=== PATIENT | female | born 1965 | race Caucasian/White ===

== ENCOUNTER 2020-11-14 18:18 | Emergency (ER) | payer MEDICAID, SELFPAY ==
[2020-11-14 22:50] VITALS: BP 134/79; PULSE 99; RESP 22; TEMP 36.1; O2SAT 98
[2020-11-14 23:22] VITALS: BP 111/71; PULSE 90; RESP 18; TEMP 36.6; O2SAT 97; BMI 40.0
[2020-11-14 23:28] VITALS: BP 111/71; RESP 18; TEMP 36.6; O2SAT 97
[2020-11-15 01:55] VITALS: BP 126/69; PULSE 93; RESP 18; TEMP 36.6; O2SAT 96
[2020-11-15 02:00] VITALS: BP 126/69; PULSE 89; RESP 20; O2SAT 96
[2020-11-15 03:37] VITALS: BP 134/66; PULSE 93; RESP 20; O2SAT 96
--- NOTE | 2020-11-15 03:51 | ED_ITS ---
HPI - Skin/Abscess/Foreign Bdy General Chief complaint: Skin/Abscess/Foreign Body Stated complaint: Abscess/Hyperglycemia Time Seen by Provider: 11/15/20 03:51 Source: patient Mode of arrival: ambulatory Limitations: no limitations History of Present Illness MD complaint: rash and lesion Onset (ago): day(s) (5) Tetanus up to date: yes Location: generalized (right lower abdomen) Severity: moderate Quality: aching Pain Consistency: constant Relieving factors: none Exacerbating factors: none Context: none Associated symptoms: denies other symptoms Treatments prior to arrival: other (area drained at home) Related Data Previous Rx's Medication Instructions Recorded cephalexin 500 mg PO BID 7 Days #14 cap 11/15/20 doxycycline hyclate 100 mg PO BID 7 Days #14 cap 11/15/20 mupirocin 1 appl TOPICAL BID 7 Days #15 g 11/15/20 Allergies Allergy/AdvReac Type Severity Reaction Status Date / Time No Known Allergies Allergy Unverified 07/10/20 18:55 [No Known Allergies*] Review of Systems Review of Systems: Constitutional : No Fever, No Chills ENT/Mouth : No sore throat, No Rhinorrhea Eyes: No Eye Pain, No Swelling, No Redness Cardiovascular : No Chest Pain, No SOB Respiratory : No Cough, No Sputum Gastrointestinal : No Nausea, No Vomiting, No Diarrhea, No abdominal Pain Genitourinary : No Dysuria, No Hematuria Musculoskeletal : No joint pain, No Myalgias, No Joint Swelling Skin : No Skin Lesions, positive skin rash Neuro : No Weakness, No Numbness, No Headache Psych : No Anxiety, No Depression All other systems reviewed and are negative [facility] Past Medical History Attestation statement: The following information was validated with the patient. Medical History (Updated 11/15/20 @ 03:54 by Chacha Houston DO) Anxiety Diabetes Social History Social History (Updated 11/15/20 @ 03:54 by Chacha Houston DO) Smoking Status: Never smoker Advance Directives: No Advance Directives Information Provided: No Physical Exam Vital Signs: Vital Signs: Last Vital Signs Temp 97.8 F 11/15/20 01:55 Pulse 93 11/15/20 03:37 Resp 20 11/15/20 03:37 BP 134/66 11/15/20 03:37 Pulse Ox 96 01/23/21 03:37 Body Mass Index 40.0 Appearance: Alert. Oriented X3. No acute distress. Eyes: Pupils equal, round and reactive to light. ENT: Pharynx normal. Neck: Normal inspection. Neck supple. CVS: Normal heart rate and rhythm. Pulses normal. Respiratory: No respiratory distress. Breath sounds normal. Abdomen: Soft and nontender. patch of erythema and mild swelling right lower abdomen scabbed over lesion, no fluctuance area is 4x5cm, very mild ttp Skin: Skin warm and dry. Normal skin color. Normal skin turgor. Extremities: No lower extremity edema. No calf ttp Neuro: Oriented X 3. No motor deficit. No sensory deficit. MDM - Skin/Abscess/Foreign Bdy MDM Narrative Medical decision making narrative: 55 yo female with 5 days of redness and drained lesion R lower abdominal wall, no fevers, no systemic symptoms, area is already drained, mild cellulitis start on antibiotics and ointment refer to PCP Discharge Plan Discharge Clinical Impression: Cellulitis Qualifiers: Site of cellulitis: trunk Site of cellulitis of trunk: abdominal wall Qualified Code(s): L03.311 - Cellulitis of abdominal wall Patient Disposition: Home, Self-Care Instructions: Cellulitis (ED) Additional Instructions: return to ED for any worsening symptoms or concerns Prescriptions: New doxycycline hyclate 100 mg capsule 100 mg PO BID 7 Days Qty: 14 RF: 0 cephalexin 500 mg capsule 500 mg PO BID 7 Days Qty: 14 RF: 0 mupirocin 2 % ointment 1 appl topical BID 7 Days Qty: 15 RF: 0 Referrals: Name,MD Chu [Primary Care Provider] - 3 days (wound check) Print Language: Kiswahili
[2020-11-15] MEDS: cephALEXin 500 MG CAPSULE PO (03:58)
== END 2020-11-15 04:05 | disposition home or self-care (01) ==
PROVIDERS: Emergency Provider Emergency Medicine; PCP Internal Medicine Geriatric Medicine
DX: L03.311 Cellulitis of abdominal wall (principal); E11.9 Type 2 diabetes mellitus without complications
CPT/HCPCS: 99283; 99284

== ENCOUNTER 2021-12-01 09:09 | Outpatient (REF) | payer MEDICAID, SELFPAY ==
--- NOTE | ~2021-12-01 | XR_ITS ---
EXAMINATION: XR LUMBAR SPINE, BILATERAL SHOULDERS CLINICAL INFORMATION: Pain. COMPARISON: None. TECHNIQUE: 4 views each shoulder. Lumbar spine 6 views. FINDINGS: Lumbar Spine: There is normal lumbar lordosis. The vertebral heights, alignment and disc heights are normal. On oblique view, there is no pars defect or listhesis. There is mild anterior superior endplates spondylosis at L3 and L4 vertebrae. The paravertebral soft tissues are normal. Left Shoulder: There is no visible acute fracture, dislocation or subluxation. There is mild loss of AC joint space with inferior spurring. No fracture or loose body seen. The soft tissues are normal. Right Ac Joint: There is mild loss of right AC joint space with inferior periarticular spurring. The glenohumeral joint space is normal. No visible acute fracture, dislocation or subluxation seen. The soft tissues are normal. XR/XR shoulder LT min 2V IMPRESSION: Unremarkable lumbar spine exam except for mild anterior superior endplate spurring at L3 and L4 vertebrae. Mild degenerative changes bilateral AC joints. The glenohumeral joint space is normal. No acute fracture or dislocation seen.
--- NOTE | ~2021-12-01 | XR_ITS ---
EXAMINATION: XR LUMBAR SPINE, BILATERAL SHOULDERS CLINICAL INFORMATION: Pain. COMPARISON: None. TECHNIQUE: 4 views each shoulder. Lumbar spine 6 views. FINDINGS: Lumbar Spine: There is normal lumbar lordosis. The vertebral heights, alignment and disc heights are normal. On oblique view, there is no pars defect or listhesis. There is mild anterior superior endplates spondylosis at L3 and L4 vertebrae. The paravertebral soft tissues are normal. Left Shoulder: There is no visible acute fracture, dislocation or subluxation. There is mild loss of AC joint space with inferior spurring. No fracture or loose body seen. The soft tissues are normal. Right Ac Joint: There is mild loss of right AC joint space with inferior periarticular spurring. The glenohumeral joint space is normal. No visible acute fracture, dislocation or subluxation seen. The soft tissues are normal. XR/XR shoulder RT min 2V IMPRESSION: Unremarkable lumbar spine exam except for mild anterior superior endplate spurring at L3 and L4 vertebrae. Mild degenerative changes bilateral AC joints. The glenohumeral joint space is normal. No acute fracture or dislocation seen.
--- NOTE | ~2021-12-01 | XR_ITS ---
EXAMINATION: XR LUMBAR SPINE, BILATERAL SHOULDERS CLINICAL INFORMATION: Pain. COMPARISON: None. TECHNIQUE: 4 views each shoulder. Lumbar spine 6 views. FINDINGS: Lumbar Spine: There is normal lumbar lordosis. The vertebral heights, alignment and disc heights are normal. On oblique view, there is no pars defect or listhesis. There is mild anterior superior endplates spondylosis at L3 and L4 vertebrae. The paravertebral soft tissues are normal. Left Shoulder: There is no visible acute fracture, dislocation or subluxation. There is mild loss of AC joint space with inferior spurring. No fracture or loose body seen. The soft tissues are normal. Right Ac Joint: There is mild loss of right AC joint space with inferior periarticular spurring. The glenohumeral joint space is normal. No visible acute fracture, dislocation or subluxation seen. The soft tissues are normal. XR/XR lumbar spine 4V min IMPRESSION: Unremarkable lumbar spine exam except for mild anterior superior endplate spurring at L3 and L4 vertebrae. Mild degenerative changes bilateral AC joints. The glenohumeral joint space is normal. No acute fracture or dislocation seen.
== END 2021-12-01 09:10 | disposition home or self-care (01) ==
LOC: HO.XRAY 09:09
PROVIDERS: PCP Internal Medicine Geriatric Medicine; Visit Provider Internal Medicine Geriatric Medicine
DX: M25.511 Pain in right shoulder (principal); M25.512 Pain in left shoulder; M54.50 Low back pain, unspecified
CPT/HCPCS: 72110; 73030

== ENCOUNTER 2022-09-22 07:22 | Outpatient (REF) | payer MEDICAID, SELFPAY ==
--- NOTE | ~2022-09-22 | MR_ITS ---
EXAMINATION: MR LUMBAR SPINE WITHOUT CONTRAST CLINICAL INFORMATION: Radiculopathy COMPARISON: None TECHNIQUE: MRI of the lumbar spine was obtained using routine sequences without contrast. FINDINGS: Motion degraded examination with nondiagnostic axial images. Normal anatomic alignment. No suspicious marrow signal or focal osseous lesion. Fatty endplate marrow signal changes on the right at L5-S1. No significant marrow edema. The vertebral body heights are maintained. Mild disc desiccation at L3-L4 and L5-S1 with preservation of disc space height.. The conus medullaris terminates at the level of L1. The distal spinal cord is normal in appearance. The cauda equina nerve roots appear grossly normal. No significant abnormalities of the paraspinal musculature.. Subcutaneous lesion in the soft tissues of the midline lower back the level of L5-S1 measuring up to 1.9 cm is nonspecific but most likely represents a sebaceous cyst. There is mild edema of the midline deep subcutaneous soft tissues. Limited evaluation of the intra-abdominal structures without significant abnormalities. Right renal cyst. The abdominal aorta is of normal contour and caliber. SPINAL LEVELS: Spinal levels are interpreted on primarily on sagittal imaging T12-L1: No evidence of spinal canal or neural foraminal narrowing. There is a 7 mm cyst posterior to the right facet joints, likely synovial cyst. L1-L2: No evidence of spinal canal or neural foraminal narrowing. L2-L3: No evidence of spinal canal or neural foraminal narrowing L3-L4: No evidence of spinal canal or neural foraminal narrowing. L4-L5: No significant spinal canal or neuroforaminal narrowing. Suggestion of mild facet arthropathy. L5-S1: Suggestion of mild facet arthropathy. Broad-based disc bulge with mild to moderate bilateral neural foraminal narrowing. MR/MR lumbar spine wo con IMPRESSION: Motion degraded examination with nondiagnostic axial imaging of the lumbar spine. Evaluation of the spinal levels is made on sagittal images which limits sensitivity for subtle disc herniations or nerve impingement. Overall mild degenerative changes of the lumbar spine with widely patent lumbar spinal canal. There is suggestion of mild to moderate bilateral neural foraminal narrowing at L5-S1.
== END 2022-09-22 07:23 | disposition home or self-care (01) ==
LOC: HO.MRI 07:22
PROVIDERS: Visit Provider Internal Medicine Geriatric Medicine
DX: M25.811 Other specified joint disorders, right shoulder (principal); M54.16 Radiculopathy, lumbar region
CPT/HCPCS: 72148

== ENCOUNTER 2023-03-22 10:53 | Outpatient (REF) | payer MEDICAID, SELFPAY ==
--- NOTE | ~2023-03-22 | XR_ITS ---
EXAMINATION: XR SHOULDER, RIGHT CLINICAL INFORMATION: Chronic right shoulder pain COMPARISON: 12/01/2021 TECHNIQUE: AP external rotation, Grashey, scapular Y, and axillary views of the right shoulder. FINDINGS: There is no evidence of fracture or dislocation. Glenohumeral joint is preserved. There are mild degenerative changes of right acromioclavicular joint. Soft tissues unremarkable. XR/XR shoulder RT min 2V IMPRESSION: Mild degenerative changes in the right acromioclavicular joint
== END 2023-03-22 10:54 | disposition home or self-care (01) ==
LOC: HO.XRAY 10:53
PROVIDERS: PCP Internal Medicine Geriatric Medicine; Visit Provider Internal Medicine Geriatric Medicine
DX: M25.511 Pain in right shoulder (principal)
CPT/HCPCS: 73030

== ENCOUNTER 2023-06-13 13:53 | Outpatient (REF) | payer MEDICAID, SELFPAY ==
[2023-06-13 17:24] LABS: Anion Gap 10 (12-20); Blood Urea Nitrogen 11 mg/dL (9-16); Calcium 9.9 mg/dL (8.4-10.2); Carbon Dioxide 27 mmol/L (22-29); Chloride 109 mmol/L (96-108); Estimated Glomerular Filt Rate > 60; Glucose Random 98 mg/dL (60-115); Potassium 3.7 mmol/L (3.3-5.1); Sodium 142 mmol/L (135-145)
== END 2023-06-13 13:54 | disposition home or self-care (01) ==
LOC: HO.HHCL 13:53
PROVIDERS: Visit Provider Internal Medicine Geriatric Medicine
DX: E11.69 Type 2 diabetes mellitus with other specified complication (principal); Z79.4 Long term (current) use of insulin
CPT/HCPCS: 36415; 80048

== ENCOUNTER 2023-10-05 09:42 | Outpatient (AMB) | payer MEDICAID, SELFPAY ==
--- NOTE | 2023-10-05 09:43 | MHC.OFFVIS ---
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 The patient states that she injured her right shoulder approximately 18 months ago while lifting a heavy object. Since that time her symptoms have gotten worse in spite of continued non operative treatments. She has done physical therapy which aggravated her pain. She has also tried Tylenol and anti-inflammatory medicines which gave her minimal relief. She has had injections in the past which gave her no relief. Patient states that she is not able to lift her right hand above shoulder height. Allergies No Known Allergies [No Known Allergies*] Allergy (Verified 10/05/23 09:50) Medication List - Last Reconciled 10/05/23 by Paul Gagnon MD cephalexin 500 mg PO BID 7 days doxycycline hyclate 100 mg PO BID 7 days mupirocin 2% 1 appl topical BID 7 days PFSH Medical History (Updated 10/05/23 @ 10:21 by Paul Gagnon MD) Anxiety Diabetes Social History Alcohol intake: never Substance Use Type: Marijuana Physical Exam Const Other: Well-nourished well-developed very friendly female awake alert and oriented x3 in no acute distress Extrem Other: Bilateral upper extremity examination shows good capillary refill, no skin lesions noted, normal sensation light touch Right shoulder examination shows decreased active and passive range of motion when compared to her left shoulder, 4+ out of 5 strength with supraspinatus testing, positive impingement signs, tenderness over her acromioclavicular joint, no instability Results Reviewed Results Reviewed: X-rays of the patient's right shoulder show severe acromioclavicular joint narrowing, a type 2 acromion, no acute bony abnormalities Assessment & Plan Assessment & Plan (1) Right shoulder pain: Code(s): M25.511 - Pain in right shoulder Plan: Ms. Story presents with progressively worsening right shoulder pain and weakness due to impingement syndrome, acromioclavicular joint arthritis and possible rotator cuff tearing. Thus, I will send the patient for an MRI of her right shoulder to further evaluate the status of her rotator cuff tendons. If she does have a full-thickness tear I will recommend surgical repair to optimize her future functional level. I will see her back once the MRI is completed to discuss the findings and treatment options. Feel free to call me at any time should questions regarding her orthopedic management arise. Thank you very much for asking me to see this very friendly patient. I spent 22 minutes in reviewing the patient's records and imaging studies, seeing the patient and documenting in the medical record. Orders: Orders MR shoulder RT wo con Today M25.511 - Pain in right shoulder Coding Level of Care Code New Pt Level 2 (73512) Diagnoses Right shoulder pain M25.511
== END 2023-10-05 10:14 | disposition home or self-care (01) ==
PROVIDERS: PCP Internal Medicine Geriatric Medicine; Visit Provider Orthopaedic Surgery
DX: M25.511 Pain in right shoulder (principal)
CPT/HCPCS: 99202

== ENCOUNTER → 2023-10-05 09:42 | Outpatient (BNVA) | payer MEDICAID, SELFPAY | PROVIDERS: PCP Internal Medicine Geriatric Medicine; Visit Provider Orthopaedic Surgery | DX: M25.511 Pain in right shoulder (principal) | CPT/HCPCS: 99202 ==

== ENCOUNTER 2023-12-16 08:44 | Outpatient (REF) | payer MEDICAID, SELFPAY ==
--- NOTE | ~2023-12-16 | MR_ITS ---
EXAMINATION: MR SHOULDER WITHOUT CONTRAST, RIGHT CLINICAL INFORMATION: Shoulder pain COMPARISON: None available. TECHNIQUE: MRI of the shoulder without contrast was performed on a high-field scanner. FINDINGS: ROTATOR CUFF: Mild-moderate supraspinatus tendinosis. Partial-thickness articular aspect tear in the distal anterior fibers measuring 1.2 cm cm AP, up to 1.7 cm medial-lateral. Infraspinatus, teres minor is intact. Moderate subscapularis tendinosis. No muscle atrophy or fatty infiltration. BICEPS: Intact CORACOACROMIAL ARCH: The undersurface of the acromion is flat with lateral subacromial spur. Moderate acromioclavicular arthritis. Mild subacromial subdeltoid bursitis. . LABRUM/CAPSULE: No labral tear is seen. No paralabral cyst. GLENOHUMERAL JOINT/MARROW: Greater tuberosity subcortical degenerative/reactive edema. No fracture. No aggressive marrow replacing lesion. No focal chondral loss.. Small joint fluid. MR/MR shoulder RT wo con IMPRESSION: 1. Mild-moderate supraspinatus tendinosis. Partial-thickness articular aspect tear anteriorly measuring 1.2 x 1.7 cm. 2. Moderate subscapularis tendinosis. 3. Moderate acromioclavicular arthritis. Mild subacromial subdeltoid bursitis.
== END 2023-12-16 08:45 | disposition home or self-care (01) ==
LOC: HO.MRI 08:44
PROVIDERS: PCP Internal Medicine Geriatric Medicine; Visit Provider Orthopaedic Surgery
DX: M25.511 Pain in right shoulder (principal)
CPT/HCPCS: 73221

== ENCOUNTER 2023-12-21 11:16 | Outpatient (REF) | payer MEDICAID, SELFPAY ==
[2023-12-21 13:59] LABS: Basophils Percent Auto 0.3 % (0-2); Eosinophils Absolute Auto 0.2 X10*3/uL (0.0-0.4); Eosinophils Percent Auto 1.7 % (0-4); Hematocrit 46.3 % (37.0-47.0); Hemoglobin 15.3 g/dl (12.0-16.0); Imm Gran Abs Auto 0.04 X10*3/uL (0.00-0.03); Imm Gran Pct Auto 0.3 % (0.0-0.4); Lymphocytes Percent Auto 53.2 % (20-40); MANUAL DIFF FLAG SCAN; Mean Corpuscular Hemoglobin 31.7 pg (27.0-33.0); Mean Corpuscular Volume 95.9 fL (80.0-98.0); Mean Platelet Volume 10.3 fL (9.4-12.3); Monocytes Absolute Auto 0.8 X10*3/uL (0.1-1.2); Monocytes Percent Auto 5.8 % (2-11); Neutrophils Absolute Auto 5.2 x10*3/uL (2.0-8.3); Neutrophils Percent Auto 38.7 % (45-73); Platelet Count 354 X10*3/uL (160-400); Red Blood Count 4.83 X10*6/uL (4.20-5.50); Red Cell Distribution Width 13.2 % (11.0-16.0); SCAN SMEAR FLAG 1; White Blood Count 13.3 X10*3/uL (4.8-10.8)
[2023-12-21 14:06] LABS: Lymphocytes Absolute Auto 7.1 X10*3/uL (1.2-4.9)
[2023-12-21 14:20] LABS: Anion Gap 12 (12-20); Blood Urea Nitrogen 13 mg/dL (9-16); Calcium 9.7 mg/dL (8.4-10.2); Carbon Dioxide 26 mmol/L (22-29); Chloride 106 mmol/L (96-108); Estimated Glomerular Filt Rate > 60; Glucose Random 80 mg/dL (60-115); Potassium 3.3 mmol/L (3.3-5.1); Sodium 141 mmol/L (135-145)
[2023-12-21 14:28] LABS: B Type Natriuretic Peptide < 10 pg/mL (<100)
[2023-12-21 15:19] LABS: SLIDE REVIEW VERIFIED
== END 2023-12-21 11:17 | disposition home or self-care (01) ==
LOC: HO.HHCL 11:16
PROVIDERS: Visit Provider Internal Medicine Geriatric Medicine
DX: E11.69 Type 2 diabetes mellitus with other specified complication (principal); R06.09 Other forms of dyspnea; R60.0 Localized edema; Z79.4 Long term (current) use of insulin
CPT/HCPCS: 36415; 80048; 83880; 85025

== ENCOUNTER 2023-12-23 10:00 | Outpatient (REF) | payer MEDICAID, SELFPAY ==
--- NOTE | ~2023-12-23 | XR_ITS ---
EXAMINATION: XR CHEST CLINICAL INFORMATION: Dyspnea on exertion COMPARISON: None available. TECHNIQUE: 2 views of the chest were obtained. FINDINGS: Bronchial thickening which can be seen in setting of infectious/plantar etiology. No pneumothorax. Trachea is midline. Cardiomediastinal silhouette is not enlarged. No large pleural effusion. Osseous structures are intact. Soft tissues are unremarkable. XR/XR chest 2V IMPRESSION: Bronchial thickening which can be seen in setting of infectious/plantar etiology.
== END 2023-12-23 10:01 | disposition home or self-care (01) ==
LOC: HO.HHCX 10:00
PROVIDERS: Visit Provider Internal Medicine Geriatric Medicine
DX: R06.09 Other forms of dyspnea (principal)
CPT/HCPCS: 71046

== ENCOUNTER 2023-12-28 17:13 | Emergency (ER) | payer MEDICAID, SELFPAY ==
--- NOTE | ~2023-12-28 | XR_ITS ---
EXAMINATION: XR CHEST CLINICAL INFORMATION: Pain COMPARISON: Chest radiograph from 12/23/2023 TECHNIQUE: 2 views of the chest were obtained. FINDINGS: Bronchial thickening which can be seen in setting of infectious/inflammatory etiology. Slight bibasilar atelectasis. No pneumothorax. Trachea is midline. Cardiac mediastinal silhouette is not enlarged. No large pleural effusion. Degenerative changes of the thoracolumbar spine. Soft tissues are unremarkable. XR/XR chest 2V IMPRESSION: 1. Bronchial thickening which can be seen in setting of infectious/inflammatory etiology. 2. Slight bibasilar atelectasis.
--- NOTE | ~2023-12-28 | CT_ITS ---
EXAMINATION: CT HEAD WITHOUT CONTRAST CLINICAL INFORMATION: Headache. Vision changes. COMPARISON: CT scan of the head 04/14/2016. TECHNIQUE: Contiguous axial imaging was performed from the skull base to vertex without intravenous administration of contrast. This CT examination was performed using dose optimization techniques as appropriate, variously including the following: *Automated exposure control *Adjustment of mA and/or kV according to patient size (this includes techniques or standardized protocols for targeted exams where dose is matched to indication/reason for exam; i.e. extremities or head) *Use of iterative reconstruction technique DLP: 713 mGy-cm FINDINGS: There is a Chiari type I malformation with the caudal tips of the cerebellar tonsils extending as far as 1.3 cm below the foramen magnum. The craniocervical junction is otherwise unremarkable. There is no acute intracranial hemorrhage or abnormal extra-axial collection. No intracranial mass effect or hydrocephalus. Perez-white matter differentiation is preserved and there is no evidence of acute territorial infarct. There is no mastoid or middle ear effusion. No active paranasal sinus disease. CT/CT head/brain wo IV con IMPRESSION: There is a Chiari type I malformation with the caudal tips of the cerebellar tonsils extending as far as 1.3 cm below the foramen magnum. A brain MRI without and with contrast is recommended for better anatomic characterization of this finding. Otherwise unremarkable examination in that there is no evidence of acute territorial infarct or hemorrhage.
[2023-12-28 17:42] VITALS: BP 118/68; PULSE 116; RESP 18; TEMP 37.1; O2SAT 90; BMI 56.0
--- NOTE | 2023-12-28 18:27 | ED.HA ---
HPI - Headache General Chief Complaint: Headache Stated Complaint: bad headache x4 days Time Seen by Provider: 12/28/23 19:14 Source: patient, RN notes reviewed, old records reviewed and seismic interpreter Mode of arrival: ambulatory Limitations: language barrier History of Present Illness HPI Narrative: 58-year-old female with past medical history significant for diabetes, asthma presents for evaluation of a headache. The patient is headache starts in her shoulders and radiates into her neck and over the back of her head. Denies any trauma to the head or neck. She reports associated shortness of breath, cough. Patient reports nausea to me but denies vomiting. She states intermittent blurry vision Patient reports that her blood sugars have been controlled. She is taken mghv-lqn-bkfmvew medications without any improvement Patient states that she has no history of headaches like this in the past She rates her pain as 05/02 Related Data Previous Rx's Medication Instructions Recorded cephalexin 500 mg capsule 500 mg PO BID 7 days #14 caps 11/15/20 doxycycline hyclate 100 mg capsule 100 mg PO BID 7 days #14 caps 11/15/20 mupirocin 2 % topical ointment 1 appl topical BID 7 days #15 grams 11/15/20 azithromycin 250 mg tablet See Rx Instructions PO .COMPLEX #6 12/28/23 tabs kfwzhovpye-ivmhqdrsxemeh-klkcykdh 1 cap PO Q4-6H PRN headache #12 12/28/23 50 mg-300 mg-40 mg capsule caps (Fioricet) prednisone 20 mg tablet 40 mg (2 x 20 mg) PO DAILY #10 tabs 12/28/23 Allergies Allergy/AdvReac Type Severity Reaction Status Date / Time No Known Allergies Allergy Verified 12/28/23 17:51 [No Known Allergies*] Review of Systems Constitutional: Constitutional: Denies body ache(s), Denies chills, Denies fever(s) and Reports headache(s) Eyes: Eyes: Reports blurry vision ENT: Denies vertigo, Reports headache(s) and Denies sore throat Cardiovascular: Cardiovascular: Denies chest pain and Reports dyspnea Respiratory: Respiratory: Reports cough, Reports dyspnea and Reports wheezing Gastrointestinal: Gastrointestinal: Denies abdominal pain, Denies nausea and Denies vomiting Musculoskeletal: Musculoskeletal: Denies back pain, Denies numbness and Denies tingling Integumentary/Breasts: Skin/Breast: Denies rash Neurologic: Denies confusion, Denies vertigo, Reports headache(s), Denies focal weakness, Denies numbness, Denies tingling, Denies paresthesias and Denies tremor(s) Psychiatric: Psychiatric: Denies confusion Allergic/Immunologic: Allergic/Immunologic: Reports wheezing PMFSH Past Medical History Medical History (Updated 12/28/23 @ 21:23 by Ildefonso Mejia) Anxiety Diabetes Social History Social History Alcohol intake: never Substance Use Type: Marijuana Advance Directives: No Advance Directives Information Provided: No Physical Exam Vital Signs: Vital Signs: Last Vital Signs Temp 98.3 F 12/28/23 20:20 Pulse 102 H 12/28/23 20:20 Resp 20 12/28/23 20:20 BP 125/69 12/28/23 20:20 Pulse Ox 95 12/28/23 20:20 O2 Del Method Room Air 12/28/23 20:20 BMI result Body Mass Index 56.0 Const: General: healthy appearing, comfortable and no acute distress; No confusion Nutritional Appearance: well nourished Orientation/consciousness: patient oriented x3 and No confusion HEENT: Head: Yes normocephalic and Yes atraumatic Eyes: Eyelids: Yes eyelids normal Conjunctivae: conjunctivae normal Sclerae: sclerae normal Corneas: corneas normal EOM: EOMs intact bilaterally Neck: Neck: Yes full ROM Resp: Other: Patient has faint expiratory wheeze throughout Effort & Inspection: normal respiratory effort, able to speak in complete sentences and not labored Cardio: Rate: regular rate Rhythm: regular rhythm GI: Inspection: No distended Palpation (GI): Soft to palpation, not firm, nontender, no guarding and not rigid Skin: General skin exam: elasticity normal Neuro: General: patient oriented x3 and No confusion Cranial nerves: Yes CN's II-XII intact bilaterally and Yes Bilaterally intact EOM present Cognition (Neuro): normal cognition Course Course Course Narrative: This is a rapid medical exam: Additional HPI, ROS, PE not included below will be deferred to primary provider. 4 day history of headache with intermittent vision changes and blurred vision. States that she has been using OTC medications with no relief of symptoms. Reevaluation(s) Reevaluation #1: Patient's chest x-ray shows concern for infectious/inflammatory etiology. Given that she was initially hypoxic 90% on room air we will treat as acute bronchitis with azithromycin and prednisone given her history of asthma. The patient has been 95% on room air since. She has not septic, so she has not meet criteria for admission. Time: 21:18 Medications Administered Discontinued Medications Generic Name Dose Route Start Last Admin Trade Name Lastq PRN Reason Stop Dose Admin Diphenhydramine HCl 25 mg 12/28/23 19:52 12/28/23 20:34 Diphenhydramine Hcl 50 Mg/Ml Vial IVPUSH 12/28/23 19:53 25 mg ONCE ONE Administration Sodium Chloride 1,000 mls @ 999 mls/hr 12/28/23 20:00 12/28/23 20:37 Ns IV 12/28/23 21:00 999 mls/hr .Q1H1M LUIS ALFREDO Administration Ketorolac Tromethamine 15 mg 12/28/23 19:54 12/28/23 20:35 Ketorolac Tromethamine 15 Mg/Ml Vial IVPUSH 12/28/23 19:55 15 mg ONCE ONE Administration Methylprednisolone Sodium Succinate 60 mg 12/28/23 19:54 12/28/23 20:34 Methylprednisolone Sod Succ 125 Mg/2 Ml Vial IVPUSH 12/28/23 19:55 60 mg ONCE ONE Administration Metoclopramide HCl 10 mg 12/28/23 19:52 12/28/23 20:34 Metoclopramide Hcl 10 Mg/2 Ml Vial IVPUSH 12/28/23 19:53 10 mg ONCE ONE Administration Medical Decision Making Medical Decision Making [facility] Narrative: 58-year-old female presents for evaluation headache for the last 4 days. Her headache starts in her shoulders and neck and radiates up over the back of her head. This is possibly tension headache. However the patient did have a CT scan ordered from triage given that this is new for the patient which shows a Chiari 1 malformation. The patient is neurologically intact. It is unclear if her headaches are related to tension headache versus the Chiari 1 malformation. The patient may follow-up with an outpatient MRI and neurology referral. She was found to have oxygen saturation 90% on room air during triage. She does endorse cough and shortness of breath, she has faint wheezing. Will treat her with in albuterol nebulizer, in the meantime will treat her headache with Toradol, Reglan Benadryl and Solu-Medrol which should help any potential asthma exacerbation as well as her headaches. She is negative for viral swabs. Differential Diagnosis Differential Diagnoses: The differential diagnosis associated with the presentation includes Acute headache Tension headache Cluster headache Migraine headache Chiari 1 malformation Asthma exacerbation Influenza COVID-19 Lab Data No leukocytosis with a white count of 5.1, no anemia. Normal platelet count. No significant electrolyte abnormalities. Patient's glucose is elevated to 177, no evidence of DKA. She has a known diabetic 12/28/23 20:10 12/28/23 20:10 Labs: Lab Results 12/28/23 12/28/23 Range/Units 18:48 20:10 WBC 5.1 (4.8-10.8) X10*3/uL RBC 4.70 (4.20-5.50) X10*6/uL Hgb 14.6 (12.0-16.0) g/dl Hct 43.8 (37.0-47.0) % MCV 93.2 (80.0-98.0) fL MCH 31.1 (27.0-33.0) pg MCHC 33.3 (31.0-35.0) g/dl RDW 13.2 (11.0-16.0) % Plt Count 204 D (160-400) X10*3/uL MPV 9.7 (9.4-12.3) fL Immature Gran % (Auto) 0.2 (0.0-0.4) % Neut % (Auto) 34.5 L (45-73) % Lymph % (Auto) 48.2 H (20-40) % [place] % (Auto) 12.8 H (2-11) % Eos % (Auto) 4.1 H (0-4) % Baso % (Auto) 0.2 (0-2) % Lymph # (Auto) 2.5 (1.2-4.9) X10*3/uL [place] # (Auto) 0.7 (0.1-1.2) X10*3/uL Eos # (Auto) 0.2 (0.0-0.4) X10*3/uL Baso # (Auto) 0.0 (0.0-0.2) X10*3/uL Abs Immat Gran (auto) 0.01 (0.00-0.03) X10*3/uL Absolute Neuts (auto) 1.8 L (2.0-8.3) x10*3/uL Absolute Nucleated RBC 0.000 (0.0-0.012) X10*3/uL Nucleated RBC % (auto) 0.0 (0.0-0.2) /100WBC Smear Tech's Comments VERIFIED Sodium 139 (135-145) mmol/L Potassium 3.7 (3.3-5.1) mmol/L Chloride 106 (96-108) mmol/L Carbon Dioxide 25 (22-29) mmol/L Anion Gap 12 (12-20) BUN 12 (9-16) mg/dL Creatinine 0.73 (0.5-1.4) mg/dL Estim Creat Clear Calc 91.2 Estimated GFR > 60 Random Glucose 177 H (60-115) mg/dL Calcium 9.7 (8.4-10.2) mg/dL Influenza Type A (PCR) NEGATIVE (Negative) Influenza Type B (PCR) NEGATIVE (Negative) RSV RNA Qual (PCR) NEGATIVE (Negative) SARS-CoV-2 RNA (RT-PCR) NEGATIVE (Negative) Independent Interpretation I performed an independent interpretation of an: Plain X-Ray (Agree with Radiology interpretation, bronchial wall thickening) and CT Scan (Agree with Radiology interpretation) Radiology Impression Discussion of test interpretation with radiology: I have reviewed the radiologist's reading. (There is a Chiari type 1 malformation with the caudal tips of the cerebellar tonsils extending as far as 1.3 cm below the foramen magnum.) Radiologist Impression: Chest x-ray shows bronchial wall thickening concerning for infectious/inflammatory etiology Discharge Plan Discharge Clinical Impression: Headache, Chiari malformation type I, Bronchitis Patient Disposition: Home, Self-Care Instructions: Acute Bronchitis (ED), Chiari Malformation (DC) Additional Instructions: Take azithromycin and prednisone as needed for bronchitis. Use your inhalers as needed Check your blood sugar frequently while taking prednisone as it will likely increase your blood sugars Drink lots of fluids Your CT scan of your brain showed a Chiari 1 malformation and it is recommended that you get an MRI of your brain as an outpatient You may follow-up with Dr. Sánchez, neurology as well as your own primary doctor You may use Fioricet as needed for further headaches Return for new or worsening symptoms Prescriptions: New azithromycin 250 mg tablet See Rx Instructions .ROUTE .COMPLEX Qty: 6 0RF Rx Instructions: For 250 mg dose pack: take 500 mg today (day 1), then 250 mg for 4 days (days 2-5) prednisone 20 mg tablet 40 mg PO DAILY Qty: 10 0RF ulbpmfwhqh-wvtpizdegpypw-mfkr [Fioricet] 50-300-40 mg capsule 1 cap PO Q4-6H PRN (Reason: headache) Qty: 12 0RF No Action doxycycline hyclate 100 mg capsule 100 mg PO BID 7 Days Qty: 14 0RF cephalexin 500 mg capsule 500 mg PO BID 7 Days Qty: 14 0RF mupirocin 2 % ointment 1 appl topical BID 7 Days Qty: 15 0RF
[2023-12-28 19:35] LABS: Influenza A PCR NEGATIVE (Negative); Influenza B PCR NEGATIVE (Negative); Resp Syncy Virus RNA Qual PCR NEGATIVE (Negative); SARS COV2 PCR INHOUSE NEGATIVE (Negative)
[2023-12-28 20:19] LABS: Basophils Percent Auto 0.2 % (0-2); Eosinophils Absolute Auto 0.2 X10*3/uL (0.0-0.4); Eosinophils Percent Auto 4.1 % (0-4); Hematocrit 43.8 % (37.0-47.0); Hemoglobin 14.6 g/dl (12.0-16.0); Imm Gran Abs Auto 0.01 X10*3/uL (0.00-0.03); Imm Gran Pct Auto 0.2 % (0.0-0.4); Lymphocytes Absolute Auto 2.5 X10*3/uL (1.2-4.9); Lymphocytes Percent Auto 48.2 % (20-40); MANUAL DIFF FLAG SCAN; Mean Corpuscular HGB Conc 33.3 g/dl (31.0-35.0); Mean Corpuscular Hemoglobin 31.1 pg (27.0-33.0); Mean Corpuscular Volume 93.2 fL (80.0-98.0); Mean Platelet Volume 9.7 fL (9.4-12.3); Monocytes Absolute Auto 0.7 X10*3/uL (0.1-1.2); Monocytes Percent Auto 12.8 % (2-11); Neutrophils Absolute Auto 1.8 x10*3/uL (2.0-8.3); Neutrophils Percent Auto 34.5 % (45-73); Platelet Count 204 X10*3/uL (160-400); Red Cell Distribution Width 13.2 % (11.0-16.0); SCAN SMEAR FLAG 1; White Blood Count 5.1 X10*3/uL (4.8-10.8)
[2023-12-28 20:20] VITALS: BP 125/69; PULSE 102; RESP 20; TEMP 36.8; O2SAT 95
[2023-12-28 20:29] LABS: Anion Gap 12 (12-20); Blood Urea Nitrogen 12 mg/dL (9-16); Calcium 9.7 mg/dL (8.4-10.2); Carbon Dioxide 25 mmol/L (22-29); Chloride 106 mmol/L (96-108); Creatinine Clr Calc Pharmacy 91.2; Estimated Glomerular Filt Rate > 60; Glucose Random 177 mg/dL (60-115); Potassium 3.7 mmol/L (3.3-5.1); Sodium 139 mmol/L (135-145)
--- NOTE | 2023-12-28 20:29 | PC.RT ---
bronch protocol ordered. This RT assessed pt for the need of breathing teatments, pt scored a 2 on the bronch protocol but at this time pt states her breathing is at her baseline and is denying any resp interventions. Provider aware.
[2023-12-28] MEDS: Metoclopramide HCl 10 MG/2 ML VIAL IVPUSH (20:34)
[2023-12-28] MEDS: diphenhydrAMINE HCL 50 MG/ML VIAL 25 MG IVPUSH (20:34)
[2023-12-28] MEDS: methylPREDNISolone Sod Succ 125 MG/2 ML VIAL 60 MG IVPUSH (20:34)
[2023-12-28] MEDS: Ketorolac Tromethamine 15 MG/ML VIAL IVPUSH (20:35)
[2023-12-28] MEDS: 0.9 % Sodium Chloride 1,000 ML 999 ML IV (20:37)
[2023-12-28 21:08] LABS: SLIDE REVIEW VERIFIED
== END 2023-12-28 22:00 | disposition home or self-care (01) ==
PROVIDERS: Nurse Practitioner Family; Physician Assistant; Emergency Provider Internal Medicine; PCP Internal Medicine Geriatric Medicine
DX: R51.9 Headache, unspecified (principal); G93.5 Compression of brain; J20.9 Acute bronchitis, unspecified; J45.909 Unspecified asthma, uncomplicated; E11.9 Type 2 diabetes mellitus without complications; Z11.52 Encounter for screening for COVID-19; Z20.828 Contact with and (suspected) exposure to other viral communicable diseases
CPT/HCPCS: 0241U; 36415; 70450; 71046; 80048; 85025; 96374; 96375; 99284; J1200; J1885; J2765; J2930

== ENCOUNTER → 2024-01-30 14:21 | Outpatient (REF) | payer MEDICAID, SELFPAY | LOC: HO.SL 14:21 | PROVIDERS: PCP Internal Medicine Geriatric Medicine; Visit Provider Internal Medicine Geriatric Medicine | DX: G47.33 Obstructive sleep apnea (adult) (pediatric) (principal) | CPT/HCPCS: 95806 ==

== ENCOUNTER → 2024-01-30 19:00 | Outpatient (BNV) | payer MEDICAID, SELFPAY | PROVIDERS: PCP Internal Medicine Geriatric Medicine; Visit Provider Internal Medicine | DX: G47.33 Obstructive sleep apnea (adult) (pediatric) (principal) | CPT/HCPCS: 95806 ==

== ENCOUNTER 2024-02-09 08:10 | Outpatient (REF) | payer MEDICAID, SELFPAY ==
--- NOTE | ~2024-02-09 | MR_ITS ---
EXAMINATION: MR BRAIN WITHOUT CONTRAST CLINICAL INFORMATION: Occipital headaches, Chiari I malformation COMPARISON: CT head 12/28/2023 TECHNIQUE: MRI of the brain was obtained using routine sequences without contrast. FINDINGS: Stable appearance of a Chiari malformation with small posterior fossa and herniated peg-shaped cerebellar tonsils terminating to 1.2 cm below the foramen magnum on the left. There is caudal displacement of the obex below the foramen magnum. There is slight odontoid retroflection. There is crowding at the foramen magnum with effacement of the cervicomedullary CSF. No hydrocephalus. No acute infarct. No acute intracranial hemorrhage or extra-axial fluid collection. Patchy T2 FLAIR hyperintense foci in the subcortical and periventricular white matter, nonspecific but presumably mild chronic microangiopathy. No mass lesion, mass effect, or herniation pattern. Partially empty sella. Normal intracranial arterial and dural venous sinus flow voids. The orbits are grossly unremarkable. The paranasal sinuses and mastoids are well aerated. Normal marrow signal. MR/MR head/brain wo con IMPRESSION: 1. Stable appearance of a Chiari malformation with small posterior fossa and herniated peg-shaped cerebellar tonsils terminating to 1.2 cm below the foramen magnum on the left. Caudal displacement of the obex below the foramen magnum, slight odontoid retroflection, andis effacement of the cervicomedullary CSF. No hydrocephalus. 2. Partially empty sella.
== END 2024-02-09 08:11 | disposition home or self-care (01) ==
LOC: HO.MRI 08:10
PROVIDERS: PCP Internal Medicine Geriatric Medicine; Visit Provider Internal Medicine Geriatric Medicine
DX: G93.5 Compression of brain (principal); G44.83 Primary cough headache
CPT/HCPCS: 70551

== ENCOUNTER 2024-10-22 08:55 | Outpatient (REF) | payer MEDICAID, SELFPAY ==
--- OUTSIDE RECORDS SUMMARY | 2024-10-22 08:58 | XMS_ITS | Continuity of Care Document ---
Author Organization [facility] Address [address] [place] [address] Phone Care Team Providers Care Clerk Of Works Name Role Phone Augustus Murguia MD Unavailable Unavailable Procedures Procedure Date Holter Monitor, Hosp Interp Only, Up To 48 Hrs Advance Directives Directive Yes / No Effective Date File Name No Information Encounters Encounter Description Practice Location Reason(s) For Visit Diagnoses Date Provider Providers Copied on Encounter [facility], [address], [place], [place], [id number], tel:[phone] [facility] OUT No Information Shantal Coffman. [address] [facility] [address], [address], [place], [place], [id number] , . tel:[phone] Referring Provider: Sukh Segovia, [address] [facility], [place], [address]. tel:[phone] Family History Family Member Type Diagnosis Age At Onset No Information Payers Payer name Insurance type Covered libertarian ID Authordannya tijesus(s) Blue Cross BL [id number] Social History Type Description Quantity Date Captured [...]
[2024-10-22 11:40] LABS: Alanine Aminotransferase 29 U/L (0-31); Albumin Level 4.1 g/dL (3.5-5.0); Alkaline Phosphatase 92 U/L (39-117); Anion Gap 8 (12-20); Aspartate Amino Transferase 23 U/L (5-31); Bilirubin Direct 0.2 mg/dL (0.0-0.5); Bilirubin Total 0.7 mg/dL (0.0-1.0); Blood Urea Nitrogen 12 mg/dL (9-16); Calcium 9.3 mg/dL (8.4-10.2); Carbon Dioxide 27 mmol/L (22-29); Chloride 110 mmol/L (96-108); Cholesterol 122 mg/dL (<200); Estimated Glomerular Filt Rate > 60; Glucose Random 146 mg/dL (60-115); HDL Cholesterol 46 mg/dL (>40); LDL Cholesterol Calculated 56 mg/dL (<100); Potassium 4.3 mmol/L (3.3-5.1); Sodium 141 mmol/L (135-145); Total Protein 7.6 g/dL (6.5-8.0); Triglycerides 100 mg/dL (<150)
[2024-10-22 11:44] LABS: Creatinine Urine 126.37 mg/dL; Microalbum/Creatinine Ratio Ur 18.9 ug/mg cr (<30)
== END 2024-10-22 08:56 | disposition home or self-care (01) ==
LOC: HO.HHCL 08:55
PROVIDERS: Visit Provider Internal Medicine Geriatric Medicine
DX: E11.65 Type 2 diabetes mellitus with hyperglycemia (principal); Z79.4 Long term (current) use of insulin; E78.00 Pure hypercholesterolemia, unspecified; I10 Essential (primary) hypertension
CPT/HCPCS: 36415; 80048; 80061; 80076; 82043; 82570

== ENCOUNTER 2025-01-09 08:41 | Outpatient (AMB) | payer MEDICAID, SELFPAY ==
--- NOTE | 2025-01-09 08:43 | A.OFFVIS_ITS ---
Vital Signs 01/09/25 08:49 Height 4 ft 8 in Weight 250 lb BMI 56.0 Intake Visit Reasons: Right shoulder pain, Left shoulder pain and weakness Intake Note: Rhonda is a 59 year old female who presents with complaints of progressively worsening left shoulder pain and weakness as well as right shoulder pain. She denies any weakness in her right shoulder. Her bilateral shoulder pains have gotten worse over the last 2 years in spite of continued non operative treatments. She has failed the last 6 weeks of conservative treatment which has included physical therapy exercises, Tylenol and anti-inflammatory medicines. She denies any numbness or tingling in either of her upper extremities. The patient reports difficulty lifting her left hand above shoulder height. Bag Machine Operator Required: Yes Bag Machine Operator Language: Refrigerator Car Icer Name: FOZIA De/ELLIS Allergies No Known Allergies [No Known Allergies*] Allergy (Verified 01/09/25 08:43) Medication List - Last Reconciled 01/09/25 by Paul Gagnon MD alprazolam 0.5 mg PO TID PRN aripiprazole 5 mg PO QAM aspirin 81 mg PO QPM atorvastatin 20 mg PO QPM iyxzqknsew-npmqlyvkljivf-spbr 50-300-40 mg (Fioricet) 1 cap PO Q4-6H PRN cholecalciferol (vitamin D3) 50 mcg PO QAM empagliflozin (Jardiance) 10 mg PO QPM fluticasone furoate 100 mcg/actuation (Arnuity Ellipta) 1 inh inhalation DAILY insulin degludec (Tresiba FlexTouch U-200 insulin) 74 units subcut DAILY insulin glargine (Lantus Solostar U-100 Insulin) 70 units subcut BEDTIME insulin lispro subcut lisinopril 20 mg PO QAM mupirocin 2% 1 appl topical BID 7 days semaglutide (Ozempic) 0.5 mg subcut QWEEK sertraline 200 mg PO QAM zolpidem 10 mg PO BEDTIME [facility] Medical History (Updated 01/10/25 @ 07:59 by Paul Gagnon MD) Anxiety Diabetes Social History Alcohol intake: never Substance Use Type: Marijuana Physical Exam Vital Signs: BMI result Body Mass Index 56.0 Const Other: Well-nourished well-developed very friendly female awake alert and oriented x3 in no acute distress Extrem Other: Bilateral upper extremity examination shows good capillary refill, no skin lesions noted, normal sensation light touch Right shoulder examination shows forward flexion to 150 degrees, external rotation to 40 degrees, positive impingement signs, 5/5 strength with supraspinatus testing, tenderness over her acromioclavicular joint, no instability Left shoulder examination shows 4+ out of 5 strength with supraspinatus testing, positive impingement signs, no instability Office Procedures AMB Joint Injection/Aspiration Joint Injection/Aspiration Primary Site: right shoulder Prep: site was prepped using aseptic technique Injected: 40 mg of, DepoMedrol and 1% plain lidocaine Procedure: The patient tolerated the procedure well Coding 36948 - Large joint Procedure code (CPT) selection complete Results Reviewed Results Reviewed: X-rays of the patient's bilateral shoulders taken previously show severe acromioclavicular joint narrowing, type 2 acromion MRI of the patient's right shoulder show severe acromioclavicular joint narrowing, a type 2 acromion, signal change within the supraspinatus tendon most likely due to adhesive capsulitis Assessment & Plan Assessment & Plan (1) Rotator cuff insufficiency of left shoulder: Code(s): M25.312 - Other instability, left shoulder Category: Medical (2) Impingement of right shoulder: Code(s): M25.811 - Other specified joint disorders, right shoulder Category: Medical (3) Right shoulder pain: Code(s): M25.511 - Pain in right shoulder Category: Medical Plan Ms. Story presents with right shoulder pain and stiffness due to impingement syndrome, acromioclavicular joint arthritis and adhesive capsulitis. The risks and benefits of a right shoulder cortisone injection were discussed at length with the patient. The patient wished to proceed. She tolerated the injection well. The patient also has left shoulder pain and weakness due to impingement syndrome and possible rotator cuff tearing. I will send the patient for an MRI of her left shoulder for further evaluation. I will see her back once the MRI is completed to discuss the findings and treatment options. Feel free to call me at any time should questions regarding her orthopedic management arise. I spent 20 minutes in reviewing the patient's records and imaging studies, seeing the patient and documenting in the medical record. Orders: Orders shoulder LT wo con 01/09/25 M25.312 - Other instability, left shoulder AMB Joint Injection/Aspiration 01/09/25 M25.811 - Other specified joint disorders, right shoulder Coding Level of Care Code Est Pt Level 3 (58539) Complex EM visit Add On G2211 Diagnoses Rotator cuff insufficiency of left shoulder M25.312 Impingement of right shoulder M25.811 Right shoulder pain M25.511 CPT Codes Coding - 98346 Large joint: 78501 - Large joint ([id number])
[2025-01-09 08:49] VITALS: BMI 56.0
--- OUTSIDE RECORDS SUMMARY | 2025-01-09 09:31 | XMS_ITS | Encounter Summary ---
Author Organization [email or web address] Address [address] [place] [address] Care Team Providers Care Instructor Bridge Name Role Phone Name, Chu DONOVAN Primary Care Provider Sarah Gaytan PharmD Unavailable [phone] Encounter Details Date Type Department Care Team (Late st Contact Info) Description 12/30/[address] [facility] [address] [place], [place] [id number] Charmaine Bloom LPN Social History Tobacco Use Types Packs/Day Years Used Date Smoking Tobacco: Never Assessed Comments Unknown Sex and Gender Information Value Date Recorded Sex Assigned at Female 08/23/2022 10:29 AM EDT Legal Sex Female 10:29 AM EDT Gender Identity Choose not to disclose 10:29 AM EDT Sexual Orientation Choose not to disclose 2021 10:29 AM EDT documented as of this encounter Plan of Treatment Upcoming Encounters Date Type Department Care Team (Late Contact Info) Description 01/24/2025 1:00 PM EDT Medication Management [facility] MEDICINE [address] [place] [address] Sarah Gaytan, PharmD [address] [place] [address] 01/29/2025 10:30 AM EDT Office Visit [facility] OPTOMETRY [address] [place] [address] Adrienne Arroyo, OD [address] [place] [address] 03/05/2025 11:00 AM EDT Office Visit [facility] MEDICINE [address] [place] [address] Name, MD Chu [address] [place] [address] documented as of this encounter Visit Diagnoses Not on filedocumented in this encounter Care Teams Instructor Bridge Relationship Specialty Start Date End Date Name, MD Chu [address] [place] [id number] PCP - General Family Medicine 09/24/19 Sarah Gaytan PharmD [address] [place] [id number] Pharmacist Internal Medicine 10/18/24 documented as of this encounter
--- OUTSIDE RECORDS SUMMARY | 2025-01-09 09:32 | XMS_ITS | Continuity of Care Document ---
Author Organization [facility] Address [address] [place] [address] Phone Care Team Providers Care Traffic Sergeant Name Role Phone Augustus Murguia MD Unavailable Unavailable Procedures Procedure Date Holter Monitor, Hosp Interp Only, Up To 48 Hrs Advance Directives Directive Yes / No Effective Date File Name No Information Encounters Encounter Description Practice Location Reason(s) For Visit Diagnoses Date Provider Providers Copied on Encounter [facility], [address], [place], [place], [id number], tel:[phone] [facility] OUT No Information Shantal Coffman. [address] [facility] [address], [address], [place], [place], [id number] , . tel:[phone] Referring Provider: Sukh Segovia, [address] [facility], [place], [address]. tel:[phone] Family History Family Member Type Diagnosis Age At Onset No Information Payers Payer name Insurance type Covered republican ID Authordannya tijesus(s) Blue Cross BL [id number] Social History Type Description Quantity Date Captured [...]
--- OUTSIDE RECORDS SUMMARY | 2025-01-09 09:32 | XMS_ITS | Encounter Summary ---
Author Organization [employer] Address [address] [facility] 7t [place] [address] Care Team Providers Care Epic Cadence Specialists Name Role Phone Name, Chu DONOVAN Primary Care Provider [phone] Sarah Gaytan PharmD Unavailable [phone] Encounter Details Date Type Department Care Team ([facility] st Contact Info) Description 01/04/2025 Population Health Risk Score [facility] ([facility]) Department [address] [id number] Provider, Population Health Generic Social History Tobacco Use Types Packs/Day Years Used Date Smoking Tobacco: Every Day Cigarettes 0.5 41.2 Started: 10/18/1983 Passive Smoke Exposure: Current Smokeless Tobacco: Never Alcohol Use Standard Drinks/Week Comments Never 0 (1 standard drink = 0.6 oz pur e alcohol) Alcohol Answer Date Recorded Frequency of Alcohol Consumption Not on file 05/01/2024 Average Number of Drinks Not on file 024 Frequency of Binge Drinking Not on file 06/2024 Score 0 05/01/2024 Depression Answer Date Recorded Patient Health Questionnaire-9 Score 20 12/04/2024 Patient Health Questionnaire-9 Score 20 12/04/2024 Last PHQ-9: Questionnaire Data Not on file 0 12/04/2024 Housing Stability Answer Date Recorded What is your housing situation today? I am not s ure 12/04/[address] you li ve. Do you have problems with any of the following? None of the above 12/04/2024 Food Insecurity Answer Date Recorded Within the past 12 months, y ou worried that your food would run out before you got money to buy more: Never True 12/04/2024 Within the past 12 months,th e food you bought just didn't last and you didn't have enough money to get more: Never True 08/2025 Transportation Answer Date Recorded In the past 12 months, has l ack of transportation kept you from medical appts, meetings, work or from getting things needed for daily living? No 12/04/2024 Utilities Answer Date Recorded In the past 12 months, has t he electric, gas, oil or water company threatened to shut off services in your home? No 12/04/2024 Depression Answer Date Recorded Patient Health Questionnaire-2 Score 6 12/04/2024 Internet Access Answer Date Recorded Internet Access Q1 Yes 12/04/2024 Internet Access Q2 Not on file 12/04/2024 Comments Unknown Sex and Gender Information Value Date Recorded Sex Assigned at Female 08/23/2022 10:29 AM EDT Legal Sex Female 10:29 AM EDT Gender Identity Choose not to disclose 10:29 AM EDT Sexual Orientation Choose not to disclose 2021 10:29 AM EDT documented as of this encounter Plan of Treatment Upcoming Encounters Date Type Department Care Team (Late st Contact Info) Description 01/24/2025 1:00 PM EDT Medication Management [facility] [address] [place] [phone] Sarah Gaytan, PharmD [address] [place] [address] 01/29/2025 10:30 AM EDT Office Visit [facility] [address] [place] [phone] Adrienne Arroyo, OD [address] [place] [address] 03/05/2025 11:00 AM EDT Office Visit [facility] [address] [place] [phone] Name, MD Chu [address] [place] [address] documented as of this encounter Visit Diagnoses Not on filedocumented in this encounter Additional Health Concerns Assessment Noted Time PHQ-9 Depression Total Score: 20 025 11:41 AM EST documented as of this encounter Care Teams Epic Cadence Specialists Relationship Specialty Start Date End Date Name, MD Chu [address] [place] [address] PCP - General Family Medicine 09/24/19 Sarah Gaytan PharmD [address] [place] [address] Pharmacist Internal Medicine 10/18/24 documented as of this encounter
--- OUTSIDE RECORDS SUMMARY | 2025-01-09 09:32 | XMS_ITS | Encounter Summary ---
Author Organization [employer] Address [address] [facility] [address] [place] [address] Care Team Providers Care Sod Farmer Name Role Phone Name, Chu DONOVAN Primary Care Provider [phone] Sarah Gaytan PharmD Unavailable [phone] Reason for Visit * Reason Comments Med Refill Encounter Details Date Type Department Care Team ([facility] st Contact Info) Description 12/14/2024 Refill [facility] [address] [place], [place] [phone] Name, MD Chu [address] [place] [address] Type 2 diabetes mellitus treated with insulin ([facility]) Social History Tobacco Use Types Packs/Day Years [...] Description 01/24/2025 1:00 PM EDT Medication Management [facility] [address] [place] [phone] Sarah Gaytan, PharmD [address] [place] [address] 01/29/2025 10:30 AM EDT Office Visit [facility] [address] [place] [address] Adrienne Arroyo, OD [address] [place] [address] 03/05/2025 11:00 AM EDT Office Visit [facility] [address] [place] [phone] Name, MD Chu [address] [place] [phone] documented as of this encounter Visit Diagnoses Diagnosis Type 2 diabetes mellitus treated with insulin ([facility]) documented in this encounter Additional Health Concerns Assessment Noted Time PHQ-9 Depression Total Score: 20 025 11:41 AM EST documented as of this encounter Care Teams Sod Farmer Relationship Specialty Start Date End Date Name, MD Chu [address] [place] [address] PCP - General Family Medicine 09/24/19 Sarah Gaytan, Haroldo [address] [place] [address] Pharmacist Internal Medicine 10/18/24 documented as of this encounter
--- OUTSIDE RECORDS SUMMARY | 2025-01-09 09:32 | XMS_ITS | Encounter Summary ---
Author Organization [employer] Address [address] [facility] [address] 7[address] [place] [address] Care Team Providers Care Assistant Store Manager Trainee Name Role Phone Name, Chu DONOVAN Primary Care Provider Sarah Gaytan PharmD Unavailable [phone] Reason for Visit * Reason Comments Med Refill Encounter Details Date Type Department Care Team (Late st Contact Info) Description 12/25/2024 Refill [facility] [address] [place], [place] [phone] Name, MD Chu [address] [place] [address] Low back pain potentially associated with radiculopathy Social History Tobacco Use Types Packs/Day Years [...] Description 01/24/2025 1:00 PM EDT Medication Management [facility] [address] [place] [phone] Sarah Gaytan, PharmD [address] [place] [address] 01/29/2025 10:30 AM EDT Office Visit [facility] [address] [place] [address] Adrienne Arroyo, OD [address] [place] [address] 03/05/2025 11:00 AM EDT Office Visit [facility] [address] [place] [phone] Name, MD Chu [address] [place] [address] documented as of this encounter Visit Diagnoses Diagnosis Low back pain potentially associated with radiculopathy documented in this encounter Additional Health Concerns Assessment Noted Time PHQ-9 Depression Total Score: 20 025 11:41 AM EST documented as of this encounter Care Teams Assistant Store Manager Trainee Relationship Specialty Start Date End Date Name, MD Chu [address] [place] [address] PCP - General Family Medicine 09/24/19 Sarah Gaytan PharmD [address] [place] [address] Pharmacist Internal Medicine 10/18/24 documented as of this encounter
--- OUTSIDE RECORDS SUMMARY | 2025-01-09 09:32 | XMS_ITS | Encounter Summary ---
Author Organization [employer] Address [address] [facility] [address] 7[address] [place] [address] Care Team Providers Care Replenishment Specialist Name Role Phone Name, Chu DONOVAN Primary Care Provider [phone] Sarah Gaytan PharmD Unavailable [phone] Reason for Visit * Reason Comments Med Refill Encounter Details Date Type Department Care Team ([facility] st Contact Info) Description 12/20/2024 Refill [facility] [address] [place], [place] [phone] Name, MD Chu [address] [place] [address] Social History Tobacco Use Types Packs/Day Years [...] the past 12 months, has t he [employer], gas, oil or water company threatened to [...] Description 01/24/2025 1:00 PM EDT Medication Management [facility] [address] [place] [phone] Sarah Gaytan, PharmD [address] [place] [address] 01/29/2025 10:30 AM EDT Office Visit [facility] [address] [place] [address] Adrienne Arroyo, OD [address] [place] [address] 03/05/2025 11:00 AM EDT Office Visit [facility] [address] [place] [phone] Name, MD Chu [address] [place] [phone] documented as of this encounter Visit Diagnoses Not on filedocumented in this encounter Additional Health Concerns Assessment Noted Time PHQ-9 Depression Total Score: 20 025 11:41 AM EST documented as of this encounter Care Teams Replenishment Specialist Relationship Specialty Start Date End Date Name, MD Chu [address] [place] [address] PCP - General Family Medicine 09/24/19 Sarah Gaytan, Haroldo [address] [place] [address] Pharmacist Internal Medicine 10/18/24 documented as of this encounter
--- OUTSIDE RECORDS SUMMARY | 2025-01-09 09:32 | XMS_ITS | Clinical Summary ---
Author Organization [employer] Address [address] [place] [address] Care Team Providers Care Grader Meat Name Role Phone Name, Chu DONOVAN Primary Care Provider [phone] Sarah Gaytan PharmD Unavailable [phone] Allergies Active Allergy Reactions Criticality Noted Date Comments Metformin Abdominal Pain 05/01/2024 Medications zolpidem (Ambien) 10 MG tablet Take 10 mg by mouth at bedtime. 023 Active sertraline (Zoloft) 100 MG tablet Take 200 mg by mouth in the morning. 023 Active ALPRAZolam (Xanax) 0.5 MG tablet Take 0.5 mg by mouth if needed in the morning, at noon, and at bedtime. 023 Active Continuous Blood Gluc Sanitation Truck Driver (FreeStyle Christie 2 [place]) device Use as directed 1 each 023 Active albuterol 108 (90 Base) MCG/ACT inhaler Inhale 2 puffs every 6 (six) hours if needed for wheezing. 18 g 11 024 Active atorvastatin (Lipitor) 20 MG tablet TAKE 1 TABLET BY MOUTH EVERY EVENING 90 tablet 3 024 Active ARIPiprazole (Abilify) 5 MG tablet Take 5 mg by mouth in the morning. 024 Active lisinopril 20 MG tablet TAKE 1 TABLET BY MOUTH EVERY MORNING 90 tablet 1 024 Active aspirin 81 MG EC tabletIndication s:Type 2 diabetes mellitus with hyperglycemia, with long-term current use of insulin (CMS/HCC) Take 1 tablet (81 mg) by mouth with evening meal. 90 tablet 3 Active insulin degludec (Tresiba FlexTouch) 200 UNIT/ML injectionIndicat ions:Type 2 diabetes mellitus with hyperglycemia, with long-term current use of insulin ([facility]) Inject 74 units subQ once daily as directed 9 mL 5 Active insulin pen needle (Pentips) 32G x 4 mm miscIndications: Type 2 diabetes mellitus with hyperglycemia, with long-term current use of insulin ([facility]) Use 4 times daily for insulin administration 200 each 11 Active nicotine (Nicoderm, Step 1) 21 MG/24HR patchIndications :Tobacco use Apply 1 patch, as directed, every 24 hours. May remove at bedtime if needed & replace the next morning. Rotate application site. 42 patch Active nicotine (Nicoderm, Step 2) 14 MG/24HR patchIndications :Tobacco use Apply 1 patch, as directed, every 24 hours. May remove at bedtime if needed & replace the next morning. Rotate application site. 14 patch Active nicotine (Nicoderm, Step 3) 7 MG/24HR patchIndications :Tobacco use Apply 1 patch, as directed, every 24 hours. May remove at bedtime if needed & replace the next morning. Rotate application site. 14 patch 2 Active nicotine polacrilex (Commit) 4 MG lozengeIndicatio ns:Tobacco use Dissolve 1 lozenge, as directed, every 1-2 hours as needed for cravings. Max 20 lozenges per 24 hours. 144 lozenge 5 Active ibuprofen 200 MG tablet Take 400 mg by mouth Every 4-6 hours as needed for headaches. OTC Active glucose blood (FreeStyle Precision Alen Test) test strip truUse to test blood sugar up to 4 times daily, as directed 100 each Active TRUEplus Lancets 33G misc Use to test blood sugar up to 4 time(s) daily 100 each Active Continuous Glucose Sensor (FreeStyle Christie 2 Sensor) misc USE DIRECTED CHANGE EVERY 14 DAYS 2 each 2 Active Semaglutide,0.25 or 0.5MG/DOS, (Ozempic, 0.25 or 0.5 MG/DOSE,) 2 MG/3ML solution pen-injectorIndi cations:Type 2 diabetes mellitus with hyperglycemia, with long-term current use of insulin ([facility]) Inject 0.5 mg under the skin 1 (one) time per week. 3 mL 1 025 Active insulin lispro (HumaLOG) 100 UNIT/ML injectionIndicat ions:Type 2 diabetes mellitus treated with insulin ([facility]) INJECT 18 UNITS SUBCUTANEOUSLY BEFORE BREAKFAST AND LUNCH AND INJECT 20 UNITS BEFORE SUPPER 15 mL 3 025 Active Arnuity Ellipta 100 MCG/ACT inhaler INHALE 1 PUFF BY MOUTH EVERY DAY AT THE SAME TIME. RINSE MOUTH AFTER USING. 30 each 3 025 Active cholecalciferol VITAMIN D (Vitamin D-3) 50 MCG (1999 [place]) tabletIndication s:Low back pain potentially associated with radiculopathy TAKE 1 TABLET BY MOUTH EVERY MORNING 90 tablet 025 Active Jardiance 10 MG TAKE 1 TABLET BY MOUTH EVERY EVENING 90 tablet 025 Active Jardiance 10 MG TAKE 1 TABLET BY MOUTH EVERY EVENING 90 tablet 1 024 2024 Discontinued insulin lispro (HumaLOG) 100 UNIT/ML injectionIndicat ions:Type 2 diabetes mellitus treated with insulin ([facility]) INJECT 18 UNITS SUBCUTANEOUSLY BEFORE BREAKFAST AND LUNCH AND INJECT 20 UNITS BEFORE SUPPER 15 mL 3 024 2024 Discontinued Arnuity Ellipta 100 MCG/ACT inhaler INHALE 1 PUFF BY MOUTH EVERY DAY AT THE SAME TIME RINSE MOUTH AFTER USING RINSE MOUTH AFTER USING. 30 each 2 024 2024 Discontinued cholecalciferol VITAMIN D (Vitamin D-3) 50 MCG (1999 UT) tabletIndication s:Low back pain potentially associated with radiculopathy TAKE 1 TABLET BY MOUTH EVERY MORNING 90 tablet 024 2024 Discontinued Semaglutide,0.25 or 0.5MG/DOS, (Ozempic, 0.25 or 0.5 MG/DOSE,) 2 MG/3ML solution pen-injectorIndi cations:Type 2 diabetes mellitus with hyperglycemia, with long-term current use of insulin ([facility]) Inject 0.25 mg under the skin 1 (one) time per week for 28 days, THEN 0.5 mg 1 (one) time per week for 14 days. 3 mL 025 2024 Discontinued(R eorder (will not trigger notification to Pharmacy)) Active Problems Problem Noted Date Diagnosed Date JULIANNA (obstructive sleep apnea) 05/01/2024 Overview (05/01/2024): CPAP with Auto CPAP 6-20 cm was recommended I will ask PA specilist to start process of getting machine Class 2 obesity 04/30/2024 Urinary incontinence 04/30/2024 Chiari malformation type I 02/21/2024 Anxiety 06/10/2023 Coitus painful for female 06/10/2023 Severe recurrent major depression with psychotic features 02/27/2019 Type 2 diabetes mellitus 07/18/2018 Dyslipidemia 07/18/2018 Neurogenic bladder 03/02/2016 Tobacco dependence syndrome 01/06/2016 Simple obesity 12/17/2015 Type 2 diabetes mellitus with hyperglycemia 11/25 Hypercholesterolemia 12/17/2015 Incontinence of urine 12/25/2013 HTN (hypertension) 10/09/2013 Central obesity 10/09/2013 Vitamin D deficiency 10/07/2013 Depression 10/07/2013 Encounters Date Type Department Care Team Description 01/04/2025 Population Health Risk Score [facility] () Department [address] [id number] Provider, Population Health Generic 12/25/2024 Refill [facility] MEDICINE [address] [place], [place] [phone] NameChu MD Low back pain potentially associated with radiculopathy 12/20/2024 Refill [facility] MEDICINE [address] [place], [place] [phone] NameChu MD 12/14/2024 Refill [facility] [address] [place], [place] [phone] NameChu MD Type 2 diabetes mellitus treated with insulin ([facility]) 12/11/2024 Refill [facility] [address] [place], [place] [phone] NameChu MD Type 2 diabetes mellitus with hyperglycemia, with long-term current use of insulin ([facility]) 12/04/2024 11:30 AM EST Office Visit [facility] [place] [address] Name, MD Chu Type 2 diabetes mellitus with hyperglycemia, with long-term current use of insulin ([facility]) (Primary Dx); Chronic right shoulder pain 12/04/2024 Travel 12/03/2024 Telephone [facility] [address] [facility] [place] [place] [address] Talib Whitaker MA chartprep 11/20/2024 Refill [facility] [address] [facility] [place] [address] Name, MD Chu 11/15/2024 Travel 10/22/2024 Orders Only [facility] [place] [address] Name, MD Chu 10/18/2024 Telephone [facility] [place] [address] Rogers Luna MA feb recall from Last 3 Months Immunizations Name Administration Dates Next Due HepB-CpG 11/15/2024,03/23/2023 Influenza injectable quadriv alent IIV4 with preservative 07/18/2018,08/09/2017 Influenza injectable quadriv alent preservative free 08/12/2022 Influenza, IIV3, injectable 12/24/2013, 4,10/05/2012 Influenza, seasonal, injecta ble, preservative free 10/18/2024 Pfizer Covid-19 Vaccine 12+ 10/18/2024 Pneumococcal Conjugate PCV 20 03/23/2023 Pneumococcal Polysaccharide PPSV23 08/09/2017, Tdap 08/12/2022,03/09/2012 Zoster, Recombinant 11/15/2024,03/23/2023 Social History Tobacco Use Types Packs/Day Years Used Date Smoking Tobacco: Every Day Cigarettes 0.5 41.2 Started: 10/18/1983 Passive Smoke Exposure: Current Smokeless Tobacco: Never Tobacco Cessation:Ready to Q uit: Not Asked; Counseling Given: Not Answered Alcohol Use Standard Drinks/Week Comments Never 0 [...] not to disclose 2021 10:29 AM EDT Last Filed Vital Signs Vital Sign Reading Time Taken Comments Blood Pressure 100/70 12/04/2024 11:38 AM EST Pulse 108 12/04/2024 11:38 AM EST Temperature 37.1 ??C (98.8 ??F) 12/04/2024 11:[address] Respiratory Rate 19 12/04/2024 11:38 AM EST Oxygen Saturation 96% 05/01/2024 1:45 PM EDT Inhaled Oxygen Concentration - - Weight 101 kg (222 lb 2 oz) 12/04/2024 11:38 AM EST Height 152.4 cm (5') 12/04/2024 11:38 AM EST Body Mass Index 43.38 12/04/2024 11:38 AM EST Plan of Treatment Upcoming Encounters Date Type Department Care Team (Late st Contact Info) Description 01/24/2025 1:00 PM EDT Medication Management [facility] MEDICINE [address] [place] [address] Sarah Gaytan, PharmD [address] [place] [address] 01/29/2025 10:30 AM EDT Office Visit [facility] OPTOMETRY [address] [place] [address] Adrienne Arroyo, OD [address] [place] [address] 03/05/2025 11:00 AM EDT Office Visit [facility] MEDICINE [address] [place] [phone] Name, MD Chu [address] [place] [address] Health Maintenance Due Date Last Done Comments CT Colonography 1967 Colonoscopy 1967 Colorectal Cancer Screening 1967 FIT DNA/Cologuard 1967 FIT 1967 FOBT 1967 Sigmoidoscopy 1967 Diabetes: Foot Exam 1977 Eye Exam 1977 Pap Smear 1988 Cervical Cancer Screening 1997 HPV/Cotest 1997 Lung Cancer Screening 2017 Mammogram 09/08/2024 09/08/2022, 11/13/2018 Diabetes: Hemoglobin A1C 01/16/2025 024, 05/01/2024, 12/21/2023, Additional history exists Dental Oral Exam 04/05/2025 10/04/2024 Dental Prophylaxis 04/05/2025 10/04/2024 Alcohol/Substance Use Screening 05/01/2025 05/01/2024 Depression Monitoring (PHQ-9) 06/03/2025 12/04/2024, 12/04/2024 Dental X-Ray: Bitewings 10/05/2025 10/04/2024 Diabetes: Urine Protein Screening 10/22/2025 10/22/2024, 03/02/2023, 08/16/2022, Additional history exists Lipid Panel 10/22/2025 10/22/2024, 02/21, 08/16/2022, Additional history exists Depression Screening 12/04/2025 12/04/2024, 12/04/19 SDOH Screening 12/04/2025 12/04/2024 Tobacco Screening 12/04/2025 12/04/2024 Dental X-Ray: Full Mouth 10/05/2027 10/04/2024 DTaP/Tdap/Td Vaccines (3 - Td or Tdap) 08/12/2032 08/12/2022, 03/09/2012 RSV Patients and Patients Aged 60 years or older (1 - 1-dose 75+ series) 2042 HIV Screening Completed 02/19/2021 Hepatitis C Screening Completed 02/19/2021 Pneumococcal Vaccine: 50+ Years Completed 03/23/2023, 08/09/2017, 11/04/2013 COVID-19 Vaccine Completed 10/18/2024, , 01/15/2021, Additional history exists Influenza Vaccine Completed 10/18/2024, , 07/18/2018, Additional history exists Hepatitis B Vaccines Completed 11/15/2024, 03/23/20 23 Zoster Vaccines Completed 11/15/2024, 03/23/2023 HIB Vaccines Aged Out No longer eligi ble based on patient's age to complete this topic HPV Vaccines Aged Out No longer eligi ble based on patient's age to complete this topic Hepatitis A Vaccines Aged Out No long er eligible based on patient's age to complete this topic IPV Vaccines Aged Out No longer eligi ble based on patient's age to complete this topic Meningococcal Vaccine Aged Out No karen james eligible based on patient's age to complete this topic RSV under 20 months Aged Out No longe r eligible based on patient's age to complete this topic Rotavirus Vaccines Aged Out No longer eligible based on patient's age to complete this topic Procedures Procedure Name Priority Date/Time Associated Diagnosis Comments POCT GLUCOSE Routine 12/04/2024 11:44 AM EST Type 2 diabetes mellitus with hyperglycemia, with long-term current use of insulin (CMS/HCC) ALBUMIN, RANDOM URINE W/CREATININE Routine 10/22/2024 8:57 AM EST LIPID PANEL, STANDARD Routine 10/22/2024 8:57 AM EST BASIC METABOLIC PANEL Routine 10/22/2024 8:57 AM EST HEPATIC FUNCTION PANEL Routine 10/22/2024 8:57 AM EST POCT GLYCATED HEMOGLOBIN, TOTAL Routine 10/18/2024 2:40 PM EST Type 2 diabetes mellitus with hyperglycemia, with long-term current use of insulin (CMS/HCC) PROPHYLAXIS - ADULT Routine 10/04/2024 1 1:00 AM EST INTRAORAL - COMPLETE SERIES OF RADIOGRAPHIC IMAGES Routine 10/04/2024 11:00 AM EST PERIODIC ORAL EVALUATION - ESTABLISHED PATIENT Routine 10/04/2024 11:00 AM EST BI MAMMOGRAM SCREENING BILATERAL Routine 09/08/2022 10:51 AM EST ZZZ HISTORICAL HEPATITIS C AB W/REFL TO HCV RNA, QN, PCR Routine 02/19/2021 11:14 AM EDT HIV 1/2 ANTIGEN/ANTIBODY, FOURTH GENERATION W/RFL Routine 02/19/2021 11:14 AM EDT from Last 3 Months or Most Recently Relevant to Health Maintenance Results * (ABNORMAL) POCT Glucose (12/04/2024 11:44 AM EST) Pathologist [facility] Glucose Blood, POC 225(A) 60 - 200 mg/dL Comment:Random QC Media Lot # [id number] Lot# Expiration Date Blood Capillary blood specimen / Unknown 12/04/2024 11:44 AM EST us Chu Vasquez MD POINT OF CARE TEST ENTER/EDIT OR DERABLES Final Result * Albumin, Random Urine W/Creatinine (10/22/2024 8:57 AM EST) Creatinine, Urine 126.37 mg/dL [facility] Microalbumin Urine 24.0 mg/L [facility] Microalbum Creatinine Ratio Ur 18.9 <30 ug/mg cr [facility] Comment:Albumin/Creatinine R atio Reference Ranges: Normal: < 30 ug/mg creatinine Microalbuminuria: 30 - 300 ug/mg creatinineClinical Albuminuria: > 300 ug/mg creatinine 10/22/2024 8:57 AM EST 10/22/2024 11:04 AM EST us Chu Vasquez MD LAB URINE ORDERABLES Final Resul t Performing Organization Address City/State/[facility] Co de Phone Number [facility] [address] [place] [address] [phone] * Hepatic Function Panel (10/22/2024 8:57 AM EST) Bilirubin, Total 0.7 0.0 - 1.0 mg/dL [facility] Bilirubin, Direct 0.2 0.0 - 0.5 mg/dL [facility] Aspartate Amino Transferase 23 5 - 31 U/L [facility] Alanine Aminotransferase 29 0 - 31 U/L [facility] Total Protein 7.6 6.5 - 8.0 g/dL [facility] Albumin Level 4.1 3.5 - 5.0 g/dL [facility] Alkaline Phosphatase 92 39 - 117 U/L [facility] 10/22/2024 8:57 AM EST 10/22/2024 11:12 AM EST us Chu Vasquez MD LAB BLOOD ORDERABLES Final Resul t Performing Organization Address City/[facility] de Phone Number [facility] [address] [place] [phone] * Lipid Panel, Standard (10/22/2024 8:57 AM EST) Triglycerides 100 <150 mg/dL [facility] Comment:Desirable Triglyceri de: less than 150 mg/dLBorderline High Triglyceride 150-199 mg/dLHigh Triglyceride: 200-499 mg/dLVery High Triglyceride: greater than or equal to 5OO mg/dL Cholesterol 122 <200 mg/dL [facility] Comment:Desirable Cholestero l: less than 200 mg/dLBorderline High Cholesterol: 200-239 mg/dLHigh Cholesterol: greater than 239 mg/dL LDL Cholesterol Calculated 56 <100 mg/dL [facility] Comment:Desirable LDL: less than 100 mg/dLNear Optimal/Above Optimal LDL: 110- 129 mg/dLBorderline High LDL: 130-159 mg/dLHigh LDL: 160-189 mg/dLVery High LDL: greater than or equal to 190 mg/dL HDL Cholesterol 46 >40 mg/dL [facility] Comment:Desirable HDL: great er than 40 mg/dL Note: This HDL assay may give artificially low results in patients with liver disease. 10/22/2024 8:57 AM EST 10/22/2024 11:12 AM EST us Chu Vasquez MD LAB BLOOD ORDERABLES Final Resul t Performing Organization Address [facility] Co de Phone Number [facility] [address] [place] [phone] * (ABNORMAL) Basic Metabolic Panel (10/22/2024 8:57 AM EST) Sodium 141 135 - 145 mmol/L [facility] Potassium 4.3 3.3 - 5.1 mmol/L [facility] Chloride 110(H) 96 - 108 mmol/L [facility] Carbon Dioxide 27 22 - 29 mmol/L [facility] Anion Gap 8(L) 12 - 20 [facility] Urea Nitrogen (BUN) 12 9 - 16 mg/dL [facility] Creatinine, Serum 0.69 0.5 - 1.4 mg/dL [facility] Estimated Glomerular Filt Rate >60 [facility] Comment:Chronic Kidney Disea se: Estimated GFR < 60 mL/min/[id number] Kidney Disease: Estimated GFR < 15 mL/min/1.73m2 Glucose 146(H) 60 - 115 mg/dL [facility] Calcium 9.3 8.4 - 10.2 mg/dL [facility] 10/22/2024 8:57 AM EST 10/22/2024 11:12 AM EST us Chu Vasquez MD LAB BLOOD ORDERABLES Final Resul t [facility] [address] [place] [phone] * (ABNORMAL) POCT HGB A1C (10/18/2024 2:40 PM EST) Hemoglobin A1C 8.8(A) 4.0 - 6.0 % QC Media Lot # [id number] Blood 10/18/2024 2:40 PM EST us Chu Vasquez MD POINT OF CARE TEST ENTER/EDIT OR DERABLES Final Result * Req: Mammogram (Screening); Bilateral (09/08/2022 10:51 AM EST) Anatomical Region Laterality Modality Breast Bilateral Mammography 09/08/2022 10:5 1 AM EST Narrative 09/08/2022 10:52 AM EST Refer to the Notes tab for result details [facility] Procedure: Req: Mammogram (Screening); Bilateral Procedure Note ProviderTyrese MD - 01/16/2023 Refer to the Notes tab for result details [facility] Procedure: Req: Mammogram (Screening); Bilateral us Chu Vasquez MD IMG BI PROCEDURES Final Result * HEPATITIS C AB W/REFL TO HCV RNA, QN, PCR (02/19/2021 11:14 AM EDT) HEPATITIS C ANTIBODY NON-REACT ADAMARIS NON-REACT ADAMARIS [facility] INDEX 0.02 <1.00 [facility] Comment: ?? HCV antibody was non-reactive. There is no laboratory ?? evidence of HCV infection. ?? In most cases, no further action is required. However, if recent HCV exposure is suspected, a test for HCV RNA (test code 31344) is suggested. ?? For additional information please refer to [email or web address]/faq/OYN09p8 (This link is being provided for informational/ educational purposes only.) ?? 02/19/2021 11:1 4 AM EDT us Chu Name HISTORICAL/NON ORDERABLE LABS Fi nal Result [facility] [address] * HIV 1/2 ANTIGEN/ANTIBODY,FOURTH GENERATION W/RFL (02/19/2021 11:14 AM EDT) HIV-1/2 ANTIGEN AND ANTIBODIES, 4TH GENERATION W/ REFLEX NON-REACT ADAMARIS NON-REACT ADAMARIS [facility] Comment: HIV-1 antigen and HIV-1/HIV-2 antibodies were not detected. There is no laboratory evidence of HIV infection. ?? PLEASE NOTE: This information has been disclosed to you from records whose confidentiality may be protected by state law. ??If your state requires such protection, then the state law prohibits you from making any further disclosure of the information without the specific written consent of the person to whom it pertains, or as otherwise permitted by law. A general authorization for the release of medical or other information is NOT sufficient for this purpose. ? For additional information please refer to http://[employer]/faq/ZSX907 (This link is being provided for informational/ educational purposes only.) ? The performance of this assay has not been clinically validated in patients less than 2 years old. ?? 02/19/2021 11:1 4 AM EDT us hCu Vasquez MD LAB BLOOD ORDERABLES Final Resul t [facility] [address] from Last 3 Months or Most Recently Relevant to Health Maintenance Insurance [facility] [id number] JOSUE Perrin [facility] MEDICAID STAND ADULT Care Teams Grader Meat Relationship Specialty Start Date End Date Name, MD Chu [address] [place] [address] PCP - General Family Medicine 09/24/19 Sarah Gaytan, WendyD [address] [place] [address] Pharmacist Internal Medicine 10/18/24
--- OUTSIDE RECORDS SUMMARY | 2025-01-09 09:32 | XMS_ITS | Encounter Summary ---
Author Organization [employer] Address [address] [place] [address] Care Team Providers Care Municipal Firefighter Name Role Phone Name, Chu DONOVAN Primary Care Provider [phone] Sarah Gaytan PharmD Unavailable [phone] Reason for Visit * Reason Onset Date Comments Med Refill 12/11/2024 Encounter Details Date Type Department Care Team (Late st Contact Info) Description 12/11/2024 Refill [facility] [address] [place], [place] [phone] Name, MD Chu [address] [place] [address] Type 2 diabetes mellitus with hyperglycemia, with long-term current use of insulin ([facility]) Social History Tobacco Use Types Packs/Day Years [...] Description 01/24/2025 1:00 PM EDT Medication Management [facility] [address] [place] [phone] Sarah Gaytan, PharmD [address] [place] [address] 01/29/2025 10:30 AM EDT Office Visit [facility] OPTOMETRY [address] [place] [address] Adrienne Arroyo, ACROLINA [address] [place] [address] 03/05/2025 11:00 AM EDT Office Visit [facility] [address] [place] [phone] Name, MD Chu [address] [place] [phone] documented as of this encounter Visit Diagnoses Diagnosis Type 2 diabetes mellitus with hyperglycemia, with long-term current use of insulin ([facility]) documented in this encounter Additional Health Concerns Assessment Noted Time PHQ-9 Depression Total Score: 20 025 11:41 AM EST documented as of this encounter Care Teams Municipal Firefighter Relationship Specialty Start Date End Date Name, MD Chu [address] [place] [phone] PCP - General Family Medicine 09/24/19 Sarah Gaytan PharmD [address] [place] [phone] Pharmacist Internal Medicine 10/18/24 documented as of this encounter
--- OUTSIDE RECORDS SUMMARY | 2025-01-09 09:32 | XMS_ITS | Encounter Summary ---
Author Organization [employer] Address [address] [place] [address] Care Team Providers Care Cath Lab Radiological Technologist Name Role Phone Name, Chu DONOVAN Primary Care Provider [phone] Sarah Gaytan PharmD Unavailable Encounter Details Date Type Department Care Team (Late st Contact Info) Description 11/01/2022 Orders Only [facility] [address] [place], [place] [phone] Charmaine Bloom LPN Social History Tobacco Use [...] Description 01/24/2025 1:00 PM EDT Medication Management [facility] MEDICINE [address] [place] [address] Sarah Gaytan, PharmD [address] [place] [address] 01/29/2025 10:30 AM EDT Office Visit [facility] OPTOMETRY [address] [place] [address] Adrienne Arroyo, OD [address] [place] [address] 03/05/2025 11:00 AM EDT Office Visit [facility] [address] [place] [address] Name, MD Chu [address] [place] [address] documented as of this encounter Visit Diagnoses Not on filedocumented in this encounter Care Teams Cath Lab Radiological Technologist Relationship Specialty Start Date End Date Name, MD Chu [address] [place] [phone] PCP - General Family Medicine 09/24/19 Sarah Gaytan PharmD [address] [place] [phone] Pharmacist Internal Medicine 10/18/24 documented as of this encounter
--- OUTSIDE RECORDS SUMMARY | 2025-01-09 09:32 | XMS_ITS | Clinical Summary ---
Author Organization [facility] Address [address] [place] [address] Care Team Providers Care Certified First Assistant Name Role Phone Unavailable Primary Care Provider Unavailabl e Source Comments PLEASE NOTE, if this patient is a minor, it may be UNLAWFUL to discuss sensitive information that is contained in these records (such as FAMILY PLANNING, MENTAL HEALTH or SUBSTANCE ABUSE) with the minor patient's parent or other person without the patient's specific authorization.[facility] Allergies No known active allergies Medications sertraline (ZOLOFT) 50 mg tabletIndications: Depression Take 1 Tab by mouth once daily. 30 Tab 2 3 Active hydrOXYzine (VISTARIL) 50 mg capsuleIndications :Depression Take 1 Cap by mouth 3 (three) times daily as needed for itching. 30 Cap 2 3 Active lancets Pt test sugar BID 100 Each 11 4 Active oxybutynin (DITROPAN) 5 mg tabletIndications: Urinary incontinence, unspecified incontinence type Take 0.5 Tabs by mouth 2 (two) times daily as needed for incontinence. 60 Tab 3 5 Active blood sugar diagnostic (FREESTYLE TEST) strips as needed for high blood sugar. FSBS twice daily 100 Each 10 5 Active blood-glucose meter kit (FREESTYLE LITE METER) monitoring kitIndications:Typ e 2 diabetes mellitus without complication ([facility]) as needed for blood glucose monitoring. DX. Diabetes type 2 - Blood sugar check twice daily and prn 1 Each 0 5 Active lisinopril-hydroch lorothiazide (PRINZIDE,ZESTORET IC) 20-25 mg per tabletIndications: Essential hypertension Take 1 Tab by mouth once daily. 180 Tab 0 5 Active metFORMIN (GLUCOPHAGE) 500 mg tabletIndications: Type 2 diabetes mellitus without complication ([facility]) Take 2 Tabs by mouth 2 (two) times daily with a meal. 180 Tab 3 5 Active atorvastatin (LIPITOR) 10 mg tabletIndications: High triglycerides Take 1 Tab by mouth once daily. 180 Tab 3 5 Active acetaminophen (TYLENOL 8 HOUR) 650 mg CR tabletIndications: Right knee pain Take 1 Tab by mouth every 8 (eight) hours as needed for pain. 30 Tab 3 5 Active Active Problems Problem Noted Date Diagnosed Date Healthcare maintenance 12/25/2013 Incontinence of urine 12/25/2013 Central obesity 10/09/2013 HTN (hypertension) 10/09/2013 DM (diabetes mellitus) ([facility]) 10/07/2013 Depression 10/07/2013 Vitamin D deficiency 10/07/2013 Obesity Anxiety Immunizations Name Administration Dates Next Due INFLUENZA, SEASONAL, INJECTABLE 12/24/2013,10/05 TDAP 03/09/2012 Social History Tobacco Use Types Packs/Day Years Used Date Smoking Tobacco: Every Day Cigarettes Alcohol Use Standard Drinks/Week Comments No 0 (1 standard drink = 0.6 oz pur e alcohol) Social Connections Answer Date Recorded Social Connections and Isolation 0 03/25/2022 Financial Resource Strain Answer Date R ecorded Financial Resource Strain 0 2021 Stress Answer Date Recorded Stress 0 03/25/2022 Physical Activity Answer Date Recorded Physical Activity 0 03/25/2022 Food Insecurity Answer Date Recorded Food 0 03/25/2022 Transportation Needs Answer Date Record ed Transportation 0 03/25/2022 Housing Stability Answer Date Recorded Housing 0 03/25/2022 Safety and Environment Answer Date Reginaldo rded Safety 0 03/25/2022 Utilities Answer Date Recorded Utilities 0 03/25/2022 Employment Answer Date Recorded Employment 0 03/25/2022 Comments No Sex and Gender Information Value Date Recorded Sex Assigned at Not on file Legal Sex Female 11:36 AM PDT Gender Identity Not on file Sexual Orientation Not on file Last Filed Vital Signs Vital Sign Reading Time Taken Comments Blood Pressure 136/87 03/25/2022 2:02 PM EDT Pulse 111 03/25/2022 2:02 PM EDT Temperature 36.7 ??C (98.1 ??F) 06/27/2015 11:30 AM E DT Respiratory Rate 22 06/27/2015 11:30 AM EDT Oxygen Saturation - - Inhaled Oxygen Concentration - - Weight 93.7 kg (206 lb 8 oz) 06/27/2015 11:30 AM EDT Height 154.9 cm (5' 1 ) 06/27/2015 11:30 AM EDT Body Mass Index 39.02 06/27/2015 11:30 AM EDT Plan of Treatment Not on file [place] [facility]
--- OUTSIDE RECORDS SUMMARY | 2025-01-09 09:32 | XMS_ITS | Encounter Summary ---
Author Organization [employer] Address [address] [place] [address] Care Team Providers Care Bathing Suit Maker Name Role Phone Name, Chu DONOVAN Primary Care Provider [phone] Sarah Gaytan PharmD Unavailable [phone] Reason for Visit * Reason Onset Date Comments Results 04/30/2024 Encounter Details Date Type Department Care Team ([facility] Contact Info) Description 04/30/2024 Telephone [facility] MED[facility] [address] [place], [place] [phone] Name, MD Chu [address] [place], [place] [phone] Results Social History Tobacco Use Types Packs/Day Years Used Date Smoking Tobacco: Every Day Cigarettes Alcohol Use Standard Drinks/Week Comments Never 0 (1 standard drink = 0.6 oz pur e alcohol) Alcohol Answer Date Recorded Frequency of Alcohol Consumption Not on file 05/01/2024 Average Number of Drinks Not on file 024 Frequency of Binge Drinking Not on file 06/2024 Score 0 05/01/2024 Depression Answer Date Recorded Patient Health Questionnaire-9 Score 15 05/01/2024 Patient Health Questionnaire-9 Score 15 05/01/2024 Last PHQ-9: Questionnaire Data Not on file 0 05/01/2024 Housing Stability Answer Date Recorded What is your housing situation today? I have jeaneth prajapati 08/19/[address] you li ve. Do you have problems with any of the following? None of the above 08/19/2023 Food Insecurity Answer Date Recorded Within the past 12 months, y ou worried that your food would run out before you got money to buy more: Never True 08/19/2023 Within the past 12 months,th e food you bought just didn't last and you didn't have enough money to get more: Never True Transportation Answer Date Recorded In the past 12 months, has l ack of transportation kept you from medical appts, meetings, work or from getting things needed for daily living? No 08/19/2023 Utilities Answer Date Recorded In the past 12 months, has t he electric, gas, oil or water company threatened to shut off services in your home? No 08/19/2023 Depression Answer Date Recorded Patient Health Questionnaire-2 Score 6 05/01/2024 Comments Unknown Sex and Gender Information Value Date Recorded Sex Assigned at Female 08/23/2022 10:29 AM EDT Legal Sex Female 10:29 AM EDT Gender Identity Choose not to disclose 10:29 AM EDT Sexual Orientation Choose not to disclose 2021 10:29 AM EDT documented as of this encounter Miscellaneous Notes * Telephone Encounter - Tate Camargo RN - 05/01/2024 11:21 AM EDT Nurse airport operations manager already spoke with pt. Pt. Already received MRI result by PCP trough phone. * Telephone Encounter - Francisco Harrison - 04/30/2024 11:49 AM EDT Tc from pt requesting results from multiple recent studies. Pt stated she's had multiple studies regarding MRI's and Sleep Study's but has not received a call back to review any of them. Please contact pt at [phone]. Romansh Speaking. documented in this encounter Plan of Treatment Upcoming Encounters Date Type Department Care Team (Late st Contact Info) Description 01/24/2025 1:00 PM EDT Medication Management [facility] MEDICINE [address] [place] [address] Sarah Gaytan, PharmD [address] [place], [place] [phone] 01/29/2025 10:30 AM EDT Office Visit [facility] OPTOMETRY [address] [place], [place] [phone] Graymigel Adrienne, OD [address] [place] [address] 03/05/2025 11:00 AM EDT Office Visit [facility] MED[facility] [address] [place] [address] Name, MD Chu [address] [place] [address] documented as of this encounter Visit Diagnoses Not on filedocumented in this encounter Additional Health Concerns Assessment Noted Time PHQ-9 Depression Total Score: 9 02/09/20 23 2:47 PM EDT documented as of this encounter Care Teams Bathing Suit Maker Relationship Specialty Start Date End Date Name, MD Chu [address] [place] [phone] PCP - General Family Medicine 09/24/19 Sarah Gaytan PharmD [address] [place] [phone] Pharmacist Internal Medicine 10/18/24 documented as of this encounter
--- OUTSIDE RECORDS SUMMARY | 2025-01-09 09:32 | XMS_ITS | Encounter Summary ---
Author Organization [id number] Address [address] [place] [address] Care Team Providers Care Assistant Curator Name Role Phone Name, Chu DONOVAN Primary Care Provider [phone] Sarah Gaytan PharmD Unavailable [phone] Reason for Visit * Reason Onset Date Comments ER Follow-up 01/03/2024 Encounter Details Date Type Department Care Team ([facility] st Contact Info) Description 01/03/2024 Telephone [facility] [address] [place], [place] [phone] Name, MD Chu [address] [place] [address] ER Follow-up Social History Tobacco Use Types Packs/Day Years Used Date Smoking Tobacco: Every Day Cigarettes Alcohol Use Standard Drinks/Week Comments Never 0 (1 standard drink = 0.6 oz pur e alcohol) Depression Answer Date Recorded Patient Health Questionnaire-9 Score 9 02/08/2023 Housing Stability Answer Date Recorded What is [...] Answer Date Recorded Patient Health Questionnaire-2 Score 2 02/08/2023 Comments Unknown Sex and Gender Information Value Date Recorded Sex Assigned at Female 08/23/2022 10:29 AM EDT Legal Sex Female 10:29 AM EDT Gender Identity Choose not to disclose 10:29 AM EDT Sexual Orientation Choose not to disclose 2021 10:29 AM EDT documented as of this encounter Miscellaneous Notes * Telephone Encounter - Tate Camargo RN - 01/04/2024 11:30 AM EDT T/C to pt. For below message, pt. States she is doing OK but has weakness and does not want to see provider for follow up. Pt. Also states ED gave referral for Neurologist, pt. Also advised if she needs to see provider for ED follow up but denies. Pt. Also states she still has SNOW, advised to come to walk in clinic but denies. Pt. Advised to go to nearest ED in case of any new or worsening symptoms. [facility] hours are reviewed. ED summery scanned into pt.'s chart. * Telephone Encounter - Bushra Jones - 01/03/2024 8:54 AM EDT Patient calling to report ED visit on : Date: 12/28/2023 Hospital: [facility] Seen for: Headaches Patient advised will forward to team nurse for follow up. Pt is requesting a referral for neurology as a recommendation from ER. documented in this encounter Plan of Treatment Upcoming Encounters Date Type Department Care Team ([facility] st Contact Info) Description 01/24/2025 1:00 PM EDT Medication Management [facility] [address] [place] [address] Puia, Haroldo Smith [address] [place] [address] 01/29/2025 10:30 AM EDT Office Visit [facility] [address] [place] [address] Adrienne Arroyo, OD [address] [place] [address] 03/05/2025 11:00 AM EDT Office Visit [facility] [address] [place] [address] Name, MD Chu [address] [place] [phone] documented as of this encounter Visit Diagnoses Not on filedocumented in this encounter Additional Health Concerns Assessment Noted Time PHQ-9 Depression Total Score: 9 02/09/20 23 2:47 PM EDT documented as of this encounter Care Teams Assistant Curator Relationship Specialty Start Date End Date Name, MD Chu [address] [place] [address] PCP - General Family Medicine 09/24/19 Sarah Gaytan PharmD [address] [place] [address] Pharmacist Internal Medicine 10/18/24 documented as of this encounter
--- OUTSIDE RECORDS SUMMARY | 2025-01-09 09:32 | XMS_ITS | Encounter Summary ---
Author Organization [employer] Address [address] [place] [address] Care Team Providers Care Lithographic Stripper Name Role Phone Name, Chu DONOVAN Primary Care Provider [phone] Sarah Gaytan PharmD Unavailable [phone] Reason for Visit * Reason Onset Date Comments [facility] Orders 05/27/2023 Encounter Details Date Type Department Care Team (Late st Contact Info) Description 05/27/2023 Telephone [facility] [address] [place], [place] [phone] Name, MD Chu [address] [place], [place] [phone] VNA Orders Social History Tobacco Use Types Packs/Day Years Used Date Smoking Tobacco: Every Day Cigarettes Depression Answer Date Recorded Patient Health Questionnaire-9 Score 9 02/08/2023 Depression Answer Date Recorded Patient Health Questionnaire-2 Score 2 02/08/2023 Comments Unknown Sex and Gender Information Value Date Recorded Sex Assigned at Female 08/23/2022 10:29 AM EDT Legal Sex Female 10:29 AM EDT Gender Identity Choose not to disclose 10:29 AM EDT Sexual Orientation Choose not to disclose 2021 10:29 AM EDT documented as of this encounter Miscellaneous Notes * Telephone Encounter - Estephanie Peterson RN - 05/27/2023 1:31 PM EDT Tc rosa Devi with [employer] [facility] [employer], requesting status on some orders that need signing and are much over due. Shandra states she sent them over on 05/18/2023 and again on 05/25/2023. Shandra states that she spoke with HIM and HIM Advise forward over to provider on Tuesday. Collateral Clerk advise will transfer over to HIM for another status of document. Please contact Shandra at [phone] * Telephone Encounter - Duaneeffie Al Jung - 05/27/2023 12:54 PM EDT Tc from Shandra with [facility], requesting status on some orders that need signing and are much over due. Shandra states she sent them over on 05/18/2023 and again on 05/25/2023. Shandra states that she spoke with HIM and HIM Advise forward over to provider on Tuesday. Collateral Clerk advise will transfer over to HIM for another status of document. Please contact Shandra at [phone] documented in this encounter Plan of Treatment Upcoming Encounters Date Type Department Care Team (Late st Contact Info) Description 01/24/2025 1:00 PM EDT Medication Management [facility] [address] [place] [address] Sarah Gaytan, PharmD [address] [place] [address] 01/29/2025 10:30 AM EDT Office Visit [facility] [address] [place] [address] Adrienne Arroyo, OD [address] [place] [address] 03/05/2025 11:00 AM EDT Office Visit [facility] [address] [place] [phone] Name, MD Chu [address] [place] [address] documented as of this encounter Visit Diagnoses Not on filedocumented in this encounter Additional Health Concerns Assessment Noted Time PHQ-9 Depression Total Score: 9 04/18/20 23 2:47 PM EDT documented as of this encounter Care Teams Lithographic Stripper Relationship Specialty Start Date End Date Name, MD Chu [address] [place] [address] PCP - General Family Medicine 09/24/19 Sarah Gaytan, Haroldo [address] [place] [address] Pharmacist Internal Medicine 10/18/24 documented as of this encounter
--- OUTSIDE RECORDS SUMMARY | 2025-01-09 09:32 | XMS_ITS | Encounter Summary ---
Author Organization [employer] Address [address] [place] [address] Care Team Providers Care Family Life Counselor Name Role Phone Name, Chu DONOVAN Primary Care Provider [phone] Sarah Gaytan PharmD Unavailable [phone] Reason for Visit * Reason Onset Date Comments Medication Question 2023 Encounter Details Date Type Department Care Team ([facility] st Contact Info) Description 2023 Telephone [facility] MEDICINE [address] [place], [place] [phone] Name, MD Chu [address] [place], [place] [phone] Medication Question Social History Tobacco Use Types Packs/Day Years [...] encounter Miscellaneous Notes * Telephone Encounter - Francisco Hunter - 2023 9:28 AM EST Tc from pt requesting call back stating she was denied refill because last pen needle 32G x 4 mm misc script sent was for 1 times daily and she takes 4 times daily. Please contact pt at [phone]. documented in this encounter Plan of Treatment Upcoming Encounters Date Type Department Care Team (Late st Contact Info) Description 01/24/2025 1:00 PM EDT Medication Management [facility] MEDICINE [address] [place] [phone] Sarah Gaytan, PharmD [address] [place] [address] 01/29/2025 10:30 AM EDT Office Visit [facility] OPTOMETRY [address] [place] [address] Adrienne Arroyo, OD [address] [place] [address] 03/05/2025 11:00 AM EDT Office Visit [facility] MEDICINE [address] [place] [phone] Name, MD Chu [address] [place] [address] documented as of this encounter Visit Diagnoses Not on filedocumented in this encounter Additional Health Concerns Assessment Noted Time PHQ-9 Depression Total Score: 9 02/09/20 23 2:47 PM EDT documented as of this encounter Care Teams Family Life Counselor Relationship Specialty Start Date End Date Name, MD Chu [address] [place] [address] PCP - General Family Medicine 09/24/19 Sarah Gaytan, Haroldo [address] [place] [address] Pharmacist Internal Medicine 10/18/24 documented as of this encounter
== END 2025-01-09 09:12 | disposition home or self-care (01) ==
LOC: HO.HOS 08:41
PROVIDERS: PCP Internal Medicine Geriatric Medicine; Visit Provider Orthopaedic Surgery
DX: M25.312 Other instability, left shoulder (principal); M25.811 Other specified joint disorders, right shoulder; M25.511 Pain in right shoulder
CPT/HCPCS: 20610; 99213

== ENCOUNTER → 2025-01-09 08:41 | Outpatient (BNVA) | payer MEDICAID, SELFPAY | PROVIDERS: PCP Internal Medicine Geriatric Medicine; Visit Provider Orthopaedic Surgery | DX: M25.811 Other specified joint disorders, right shoulder (principal); M25.511 Pain in right shoulder; M25.312 Other instability, left shoulder | CPT/HCPCS: 20610; 99212; J1010; J2003 ==

== ENCOUNTER → 2025-01-20 11:30 | Outpatient (BNV) | payer MEDICAID, SELFPAY | PROVIDERS: PCP Internal Medicine Geriatric Medicine; Visit Provider Radiology Diagnostic Radiology | DX: M67.814 Other specified disorders of tendon, left shoulder (principal); M75.122 Complete rotator cuff tear or rupture of left shoulder, not specified as traumatic | CPT/HCPCS: 73221 ==

== ENCOUNTER 2025-01-20 11:31 | Outpatient (REF) | payer MEDICAID, SELFPAY ==
--- NOTE | ~2025-01-20 | MR_ITS ---
EXAMINATION: MRI LEFT SHOULDER WITHOUT CONTRAST HISTORY: M25.312 - Other instability, left shoulder COMPARISON: Correlation is made to plain films of the left shoulder dated 12/01/2021. TECHNIQUE: Coronal T1, T2, and fat suppressed T2, axial fat suppressed proton density, and sagittal T2 weighted MR images of the left shoulder were obtained. FINDINGS: Bone Marrow: Bone marrow signal intensity is normal. Joint effusion: There is no glenohumeral joint effusion. Glenohumeral joint: The glenohumeral joint is maintained. AC joint: There is mild osteoarthritis of the AC joint with cartilage loss and osteophyte formation. Supraspinatus muscle/tendon: There is diffuse increased signal intensity within the supraspinatus tendon consistent with degeneration. There is a moderate-sized full-thickness tear approximately 10 mm from the insertion on the greater tuberosity of the humerus. There is a small amount of fluid in the subdeltoid bursa. There is no tendon retraction. Normal muscle bulk. Infraspinatus muscle/tendon: The infraspinatus tendon is intact. Normal muscle bulk. Teres minor muscle/tendon: The teres minor tendon is intact. Normal muscle bulk. Subscapularis muscle/tendon: The subscapularis tendon is intact. Normal muscle bulk. Biceps tendon: The biceps tendon is intact and normally located. Glenoid labrum: The glenoid labrum is grossly unremarkable in appearance, although evaluation is limited by lack of a joint effusion. Other findings: None MR/MR shoulder LT wo con IMPRESSION: Mild osteoarthritis of the AC joint. Tendinosis of the supraspinatus tendon with a moderate-sized full-thickness tear of the distal tendon. Electronically signed by: Dejuan Putnam MD 01/22/2025 08:31 AM EDT
== END 2025-01-20 11:32 | disposition home or self-care (01) ==
LOC: HO.MRI 11:31
PROVIDERS: PCP Internal Medicine Geriatric Medicine; Visit Provider Orthopaedic Surgery
DX: M25.312 Other instability, left shoulder (principal)
CPT/HCPCS: 73221

== ENCOUNTER 2025-01-29 09:44 | Outpatient (AMB) | payer MEDICAID, SELFPAY ==
[2025-01-29 09:50] VITALS: BMI 56.0
--- NOTE | 2025-01-29 09:50 | MHC.OFFVIS ---
Vital Signs 01/29/25 09:50 Height 4 ft 8 in Weight 250 lb BMI 56.0 Intake Visit Reasons: MRI review LT shoulder Intake Note: Rhonda is a 59 year old female who presents today for review of her left shoulder MRI results. The patient reports mild intermittent discomfort along the lateral aspect of her left shoulder. She denies any weakness. She has tried Tylenol and anti-inflammatory medicines which gave her mild relief. She wishes to hold off on surgery if at all possible. Kettle Operator Required: Yes Kettle Operator Language: Family Psychologist Services: Kettle Operator Present Kettle Operator Name: Kenisha FOZIA/ELLIS Allergies No Known Allergies [No Known Allergies*] Allergy (Verified 01/29/25 09:52) Medication List - Last Reconciled 01/29/25 by Paul Gagnon MD alprazolam 0.5 mg PO TID PRN aripiprazole 5 mg PO QAM aspirin 81 mg PO QPM atorvastatin 20 mg PO QPM qknfbqpmpq-rmgmgkzcolprt-ldar 50-300-40 mg (Fioricet) 1 cap PO Q4-6H PRN cholecalciferol (vitamin D3) 50 mcg PO QAM empagliflozin (Jardiance) 10 mg PO QPM fluticasone furoate 100 mcg/actuation (Arnuity Ellipta) 1 inh inhalation DAILY insulin degludec (Tresiba FlexTouch U-200 insulin) 74 units subcut DAILY insulin glargine (Lantus Solostar U-100 Insulin) 70 units subcut BEDTIME insulin lispro subcut lisinopril 20 mg PO QAM mupirocin 2% 1 appl topical BID 7 days semaglutide (Ozempic) 0.5 mg subcut QWEEK sertraline 200 mg PO QAM zolpidem 10 mg PO BEDTIME [facility] Medical History (Updated 01/10/25 @ 07:59 by Paul Gagnon MD) Anxiety Diabetes Social History Alcohol intake: never Substance Use Type: Marijuana Physical Exam Vital Signs: BMI result Body Mass Index 56.0 Const Other: Well-nourished well-developed very friendly female awake alert and oriented x3 in no acute distress Extrem Other: Left shoulder examination shows full range of motion when compared to her right shoulder, 4/5 strength with supraspinatus testing, positive impingement signs, tenderness over her acromioclavicular joint, no instability Results Reviewed Results Reviewed: MRI of the patient's left shoulder show severe acromioclavicular joint narrowing, a type 2 acromion, a small full-thickness tear of the supraspinatus tendon Assessment & Plan Assessment & Plan (1) Rotator cuff insufficiency of left shoulder: Code(s): M25.312 - Other instability, left shoulder Category: Medical Plan Ms. Story presents with left shoulder pain due to impingement syndrome, acromioclavicular joint arthritis and a small full-thickness rotator cuff tear. I had a lengthy discussion with the patient regarding the treatment options. At this point the patient's symptoms are tolerable to her. She wishes to hold off on surgery if at all possible. She does understand that her rotator cuff tear can become larger in size and even irreparable over time. The do's and don'ts of lifting were discussed at length with the patient. She will contact me prior to her follow-up appointment in 2 months should any questions or concerns arise. Feel free to call me at any time should questions regarding her orthopedic management arise. I spent 22 minutes in reviewing the patient's records and imaging studies, seeing the patient and documenting in the medical record. Coding Level of Care Code Est Pt Level 3 (53828) Complex EM visit Add On G2211 Diagnoses Rotator cuff insufficiency of left shoulder M25.312
--- OUTSIDE RECORDS SUMMARY | 2025-01-29 11:07 | XMS_ITS | Encounter Summary ---
Author Organization [employer] Address [address] [place] [address] Care Team Providers Care Inspector Assemblies And Installations Name Role Phone Name, Chu DONOVAN Primary Care Provider [phone] Sarah Gaytan PharmD Unavailable Encounter Details Date Type Department Care Team (Late Contact Info) Description 12/30/2022 Orders Only [facility] [address] [place], [place] [phone] Charmaine Bloom LPN Social History Tobacco Use [...] Upcoming Encounters Date Type Department Care Team ([facility] Contact Info) Description 03/01/2025 10:30 AM EDT Medication Management [facility] [address] [place] [address] Sarah Gaytan, PharmD [address], [place] [phone] 03/05/2025 11:00 AM EDT Office Visit [facility] [address] [place] [address] [phone] Name, MD Chu [address], [place] [phone] documented as of this encounter Visit Diagnoses Not on filedocumented in this encounter Care Teams Inspector Assemblies And Installations Relationship Specialty Start Date End Date Name, MD Chu [address] [place] [address] PCP - General Family Medicine 09/24/19 Sarah Gaytan PharmD [address] [place] [address] Pharmacist Internal Medicine 10/18/24 documented as of this encounter
--- OUTSIDE RECORDS SUMMARY | 2025-01-29 11:07 | XMS_ITS | Encounter Summary ---
Author Organization [employer] Address [address] 7[address] [place] [address] Care Team Providers Care Vamp Marker Name Role Phone Name, Chu DONOVAN Primary Care Provider [phone] Sarah Gaytan PharmD Unavailable [phone] Encounter Details Date Type Department Care Team (Latest Contact Info) Description 01/29/2025 Travel Social History Tobacco Use Types Packs/Day Years Used Date Smoking Tobacco: Every Day Cigarettes 0.5 41.3 Started: 10/18/1983 Passive Smoke Exposure: Current Smokeless [...] Care Team (Late st Contact Info) Description 03/01/2025 10:30 AM EDT Medication Management [address] [address] Sarah Gaytan PharmD [address] [place] [address] 03/05/2025 11:00 AM EDT Office Visit [address] [address] NameChu MD [address] [place] [address] documented as of this encounter Visit Diagnoses Not on filedocumented in this encounter Additional Health Concerns Assessment Noted Time PHQ-9 Depression Total Score: 20 025 11:41 AM EST documented as of this encounter Care Teams Vamp Marker Relationship Specialty Start Date End Date Chu Vasquez MD [address] [place] [phone] PCP - General Family Medicine 09/24/19 Sarah Gaytan, PharmD [address] [place] [address] Pharmacist Internal Medicine 10/18/24 documented as of this encounter
--- OUTSIDE RECORDS SUMMARY | 2025-01-29 11:07 | XMS_ITS | Encounter Summary ---
Author Organization [employer] Address [address] [place] [address] Care Team Providers Care Payroll Specialist Name Role Phone Name, Chu DONOVAN Primary Care Provider [phone] Sarah Gaytan PharmD Unavailable [phone] Encounter Details Date Type Department Care Team (Late Contact Info) Description 11/01/2022 Orders Only [facility] [address] [place] [address] Charmaine Bloom LPN Social History Tobacco Use [...] Department Care Team (Late Contact Info) Description 03/01/2025 10:30 AM EDT Medication Management [facility] [address] [place] [address] Sarah Gaytan, PharmD [address] [place], [place] [phone] 03/05/2025 11:00 AM EDT Office Visit [facility] [address] [place] [address] [phone] Name, MD Chu [address] [place], [place] [phone] documented as of this encounter Visit Diagnoses Not on filedocumented in this encounter Care Teams Payroll Specialist Relationship Specialty Start Date End Date Name, MD Chu [address] [place] [address] PCP - General Family Medicine 09/24/19 Sarah Gaytan PharmD [address] [place] [address] Pharmacist Internal Medicine 10/18/24 documented as of this encounter
--- OUTSIDE RECORDS SUMMARY | 2025-01-29 11:07 | XMS_ITS | Encounter Summary ---
Author Organization [employer] Address [address] [place] [address] Care Team Providers Care Furniture Reproducer Name Role Phone Name, Chu DONOVAN Primary Care Provider [phone] Sarah Gaytan PharmD Unavailable Reason for Visit * Reason Onset Date Comments [facility]NA Orders 05/27/2023 Encounter Details Date Type Department Care Team (Late st Contact Info) Description 05/27/2023 Telephone [facility] [address] [place], [place] [phone] Name, MD Chu [address] [place], [place] [phone] VNA Orders Social History Tobacco Use Types [...] Advise forward over to provider on Tuesday. Heel Top Lift Splitter advise will transfer over to HIM for another status of document. Please contact Shandra at [phone] * Telephone Encounter - Duaneeffie Al Jung - 05/27/2023 12:54 PM EDT Tc from Shandra with [employer], requesting status on some orders that need signing and are much over due. Shandra states she sent them over on 05/18/2023 and again on 05/25/2023. Shandra states that she spoke with HIM and HIM Advise forward over to provider on Tuesday. Heel Top Lift Splitter advise will transfer over to HIM for another status of document. Please contact Shandra at [phone] documented in this encounter Plan of Treatment Upcoming Encounters Date Type Department Care Team (Late st Contact Info) Description 03/01/2025 10:30 AM EDT Medication Management [facility] [address] [place] [phone] Sarah Gaytan, PharmD [address] [place] [address] 03/05/2025 11:00 AM EDT Office Visit [facility] [address] [place] [address] Name, MD Chu [address] [place] [address] documented as of this encounter Visit Diagnoses Not on filedocumented in this encounter Additional Health Concerns Assessment Noted Time PHQ-9 Depression Total Score: 9 02/09/20 23 2:47 PM EDT documented as of this encounter Care Teams Furniture Reproducer Relationship Specialty Start Date End Date NameChu MD [address] [place] [address] PCP - General Family Medicine 09/24/19 Sarah Gaytan, WendyD [address] [place] [address] Pharmacist Internal Medicine 10/18/24 documented as of this encounter
--- OUTSIDE RECORDS SUMMARY | 2025-01-29 11:07 | XMS_ITS | Encounter Summary ---
Author Organization [employer] Address [address] [place] [address] Care Team Providers Care Paint Roller Covermaker Name Role Phone Name, Chu DONOVAN Primary Care Provider [phone] Sarah Gaytan PharmD Unavailable [phone] Reason for Visit * Reason Comments Med Refill Encounter Details Date Type Department Care Team (Late st Contact Info) Description 01/24/2025 Refill [facility] [address] [place], [place] [phone] Name, MD Chu [address] [place] [address] Social History Tobacco Use Types Packs/Day Years [...] Description 03/01/2025 10:30 AM EDT Medication Management [facility] [address] [place] [address] AmirahiaSarah, PharmD [address] [place] [address] 03/05/2025 11:00 AM EDT Office Visit [facility] [address] [place] [address] NameChu MD [address] [place] [address] documented as of this encounter Visit Diagnoses Not on filedocumented in this encounter Additional Health Concerns Assessment Noted Time PHQ-9 Depression Total Score: 20 025 11:41 AM EST documented as of this encounter Care Teams Paint Roller Covermaker Relationship Specialty Start Date End Date NameChu MD [address] [place] [address] PCP - General Family Medicine 09/24/19 Sarah Gaytan PharmD [address] [place] [address] Pharmacist Internal Medicine 10/18/24 documented as of this encounter
--- OUTSIDE RECORDS SUMMARY | 2025-01-29 11:07 | XMS_ITS | Encounter Summary ---
Author Organization [employer] Address [address] [place] [address] Care Team Providers Care Marketing Project Lead Name Role Phone Name, Chu DONOVAN Primary Care Provider [phone] Sarah Gyatan PharmD Unavailable [phone] Encounter Details Date Type Department Care Team ([facility] Contact Info) Description 01/29/2025 10:30 AM EDT Office Visit [facility] [address] [place], [place] [phone] Adrienne Arroyo, OD [address] [place], [place] [phone] Arrived Social History Tobacco Use Types Packs/Day Years [...] Description 03/01/2025 10:30 AM EDT Medication Management [facility] [address] [place] [phone] Sarah Gaytan, PharmD [address] [place] [address] 03/05/2025 11:00 AM EDT Office Visit [facility] [address] [place] [address] Chu Vasquez MD [address] [place] [address] documented as of this encounter Visit Diagnoses Not on filedocumented in this encounter Additional Health Concerns Assessment Noted Time PHQ-9 Depression Total Score: 20 025 11:41 AM EST documented as of this encounter Care Teams Marketing Project Lead Relationship Specialty Start Date End Date Chu Vasquez MD [address] [place] [address] PCP - General Family Medicine 09/24/19 Sarah Gaytan, Haroldo [address] [place] [address] Pharmacist Internal Medicine 10/18/24 documented as of this encounter
--- OUTSIDE RECORDS SUMMARY | 2025-01-29 11:08 | XMS_ITS | Encounter Summary ---
Author Organization [employer] Address [address] [place] [address] Care Team Providers Care Office Mover Name Role Phone Name, Chu DONOVAN Primary Care Provider [phone] Sarah Gaytan PharmD Unavailable [phone] Reason for Visit * Reason Onset Date Comments Medication Question 2023 Encounter Details Date Type Department Care Team ([facility] st Contact Info) Description 2023 Telephone [facility] [address] [place], [place] [phone] Name, MD Chu [address] [place], [place] [phone] Medication Question Social History Tobacco Use Types [...] 4 times daily. Please contact pt at [phone]. documented in this encounter Plan of Treatment Upcoming Encounters Date Type Department Care Team (Late st Contact Info) Description 03/01/2025 10:30 AM EDT Medication Management [facility] [address] [place] [phone] Sarah Gaytan, PharmD [address] [place] [address] 03/05/2025 11:00 AM EDT Office Visit [facility] [address] [place] [phone] Name, MD Chu [address] [place] [address] documented as of this encounter Visit Diagnoses Not on filedocumented in this encounter Additional Health Concerns Assessment Noted Time PHQ-9 Depression Total Score: 9 02/09/20 23 2:47 PM EDT documented as of this encounter Care Teams Office Mover Relationship Specialty Start Date End Date Name, MD Chu [address] [place] [address] PCP - General Family Medicine 09/24/19 Sarah Gaytan, Haroldo [address] [place] [address] Pharmacist Internal Medicine 10/18/24 documented as of this encounter
--- OUTSIDE RECORDS SUMMARY | 2025-01-29 11:08 | XMS_ITS | Continuity of Care Document ---
Author Organization [facility] Address [address] [place] [address] Phone Care Team Providers Care Wind Field Manager Name Role Phone Augustus Murguia MD Unavailable Unavailable Procedures Procedure Date Holter Monitor, Hosp Interp Only, Up To 48 Hrs Advance Directives Directive Yes / No Effective Date File Name No Information Encounters Encounter Description Practice Location Reason(s) For Visit Diagnoses Date Provider Providers Copied on Encounter [facility], [address], [place], [place], [id number], tel:[phone] [facility] OUT No Information Shantal Coffman. [address] [facility] [address], [address], [place], [place], [id number] , . tel:[phone] Referring Provider: Sukh Segovia, [address] [facility], [place], [address]. tel:[phone] Family History Family Member Type Diagnosis Age At Onset No Information Payers Payer name Insurance type Covered libertarian ID Authordannya tijesus(s) [employer] BL [id number] Social History Type Description Quantity Date Captured [...]
--- OUTSIDE RECORDS SUMMARY | 2025-01-29 11:08 | XMS_ITS | Clinical Summary ---
Author Organization [facility] Address [address] [place] [address] Care Team Providers Care Insurance Plan Specialist Name Role Phone Unavailable Primary Care Provider [...] kitIndications:Typ e 2 diabetes mellitus without complication ([facility]) as needed for blood glucose monitoring. DX. Diabetes type 2 - Blood sugar check twice daily and prn 1 Each 0 5 Active lisinopril-hydroch lorothiazide (PRINZIDE,ZESTORET IC) 20-25 mg per tabletIndications: Essential hypertension Take 1 Tab by mouth once daily. 180 Tab 0 5 Active metFORMIN (GLUCOPHAGE) 500 mg tabletIndications: Type 2 diabetes mellitus without complication ([facility]) Take 2 Tabs by mouth 2 (two) [...] 10/09/2013 HTN (hypertension) 10/09/2013 DM (diabetes mellitus) ([facility]) 10/07/2013 Depression 10/07/2013 Vitamin D deficiency 10/07/2013 Obesity Anxiety Immunizations Immunization Administration Dates Next Due INFLUENZA, SEASONAL, INJECTABLE [...] Plan of Treatment [place] on file [place] [address] [place] [phone] [facility]
--- OUTSIDE RECORDS SUMMARY | 2025-01-29 11:08 | XMS_ITS | Clinical Summary ---
Author Organization [facility] Address [address] 7[address] [place] [address] Care Team Providers Care Hydroelectric Plant Structural Engineer Name Role Phone Name, Chu DONOVAN Primary Care Provider [phone] Sarah Gaytan PharmD Unavailable Allergies Active Allergy Reactions Criticality Noted Date [...] at bedtime. 023 Active Continuous Blood Gluc Circuit Rider (FreeStyle Christie 2 [place]) device Use as directed 1 each 023 Active albuterol 108 (90 Base) MCG/ACT inhaler Inhale 2 puffs every 6 (six) hours if needed for wheezing. 18 g 11 024 Active atorvastatin (Lipitor) 20 MG tablet TAKE 1 TABLET BY MOUTH EVERY EVENING 90 tablet 3 024 Active ARIPiprazole (Abilify) 5 MG tablet Take 5 mg by mouth in the morning. 024 Active aspirin 81 MG EC tabletIndication s:Type 2 diabetes mellitus with hyperglycemia, with long-term current use of insulin (CMS/HCC) Take 1 tablet (81 mg) by mouth with evening meal. 90 tablet 3 024 Active insulin degludec (Tresiba FlexTouch) 200 UNIT/ML injectionIndicat ions:Type 2 diabetes mellitus with hyperglycemia, with long-term current use of insulin (CMS/[facility]) Inject 74 units subQ once daily as directed 9 mL 5 Active insulin pen needle (Pentips) 32G x 4 mm miscIndications: Type 2 diabetes mellitus with hyperglycemia, with long-term current use of insulin (CMS/HCC) Use 4 times daily for insulin administration [...] CHANGE EVERY 14 DAYS 2 each 2 025 Active Semaglutide,0.25 or 0.5MG/DOS, (Ozempic, 0.25 or 0.5 MG/DOSE,) 2 MG/3ML solution pen-injectorIndi cations:Type 2 diabetes mellitus with hyperglycemia, with long-term current use of insulin (CMS/[facility]) Inject 0.5 mg under the skin 1 (one) time per week. 3 mL 1 025 Active insulin lispro (HumaLOG) 100 UNIT/ML injectionIndicat ions:Type 2 diabetes mellitus treated with insulin (CMS/HCC) INJECT 18 UNITS SUBCUTANEOUSLY BEFORE BREAKFAST AND [...] MOUTH EVERY EVENING 90 tablet 025 Active lisinopril 20 MG tablet TAKE 1 TABLET BY MOUTH EVERY MORNING 90 tablet 1 025 Active lisinopril 20 MG tablet TAKE 1 TABLET BY MOUTH EVERY MORNING 90 tablet 1 024 2024 Discontinued Active Problems Problem Noted Date Diagnosed Date [...] Encounters Date Type Department Care Team Description 01/29/2025 10:30 AM EDT Office Visit [facility] [address] [place] [address] Adrienne Arroyo, OD Arrived 01/29/2025 Travel 01/24/2025 Refill [facility] [address] [place] [address] Chu Vasquez MD 01/20/2025 Orders Only [facility] External Provider, [facility] 01/04/2025 Population Health Risk Score [facility] Department [address] [phone] Provider, Population Health Generic 12/25/2024 Refill [facility] [address] [place] [address] Chu Vasquez MD Low back pain potentially associated with radiculopathy 12/20/2024 Refill [facility] [address] [place] [address] Chu Vasquez MD 12/14/2024 Refill [facility] [address] [place] [address] Chu Vasquez MD Type 2 diabetes mellitus treated with insulin ([facility]) 12/11/2024 Refill [facility] [address] [place] [address] Chu Vasquez MD Type 2 diabetes mellitus with hyperglycemia, with long-term current use of insulin (CMS/HCC) 12/04/2024 11:30 AM EST Office Visit [facility] [address] [place] [address] Chu Vasquez MD Type 2 diabetes mellitus with hyperglycemia, with long-term current use of insulin (CMS/HCC) (Primary Dx); Chronic right shoulder pain 12/04/2024 Travel 12/03/2024 Telephone [facility] [address] [place] [address] Talib Whitaker MA chartprep 11/20/2024 Refill [facility] [address] [place], [place] [phone] Chu Vasquez MD 11/15/2024 Travel from Last 3 Months Immunizations Name Administration [...] Description 03/01/2025 10:30 AM EDT Medication Management [facility] [address] [place] [address] Sarah Gaytan, PharmD [address] [place] [address] 03/05/2025 11:00 AM EDT Office Visit [facility] [address] [place] [address] Name, MD Chu [address] [place] [address] Health Maintenance Due Date Last Done Comments CT Colonography 1967 Colonoscopy 1967 Colorectal Cancer Screening 1967 FIT DNA/Cologuard 1967 FIT 1967 FOBT 1967 Sigmoidoscopy 1967 Diabetes: Foot Exam 1977 Pap Smear 1988 Cervical Cancer [...] Additional history exists Lipid Panel 10/22/2025 10/22/2024, 05, 08/16/2022, Additional history exists Depression Screening 12/04/2025 12/04/2024, 12/04/19 25 SDOH Screening 12/04/2025 12/04/2024 Tobacco Screening 12/04/2025 12/04/2024 Eye Exam 01/29/2027 01/29/2025, 04/0 05/2025, 01/29/2025, Additional history exists Dental X-Ray: Full Mouth 10/05/2027 10/04/2024 DTaP/Tdap/Td [...] exists Hepatitis B Vaccines Completed 11/15/2024, 03/23/20 Zoster Vaccines Completed 11/15/2024, 03/23/2023 HIB Vaccines [...] Procedure Name Priority Date/Time Associated Diagnosis Comments MR SHOULDER WO CONTRAST LEFT Routine 01/20/2025 11:30 AM EDT POCT GLUCOSE Routine 12/04/2024 11:44 AM EST Type 2 diabetes mellitus with hyperglycemia, with long-term current use of insulin ([facility]) ALBUMIN, RANDOM URINE W/CREATININE Routine 10/22/2024 8:57 AM EST LIPID PANEL, STANDARD Routine 10/22/2024 8:57 AM EST POCT GLYCATED HEMOGLOBIN, TOTAL Routine 10/18/2024 2:40 PM EST Type 2 diabetes mellitus with hyperglycemia, with long-term current use of insulin ([facility]) PROPHYLAXIS - ADULT Routine 10/04/2024 1 1:00 AM EST INTRAORAL - COMPLETE SERIES OF RADIOGRAPHIC IMAGES Routine 10/04/2024 11:00 AM EST PERIODIC ORAL EVALUATION - ESTABLISHED PATIENT Routine 10/04/2024 11:00 AM EST BI MAMMOGRAM SCREENING BILATERAL Routine 09/08/2022 10:51 AM EST ROBE HISTORICAL HEPATITIS C AB W/REFL TO HCV RNA, QN, PCR Routine 02/19/2021 11:14 AM EDT HIV 1/2 ANTIGEN/ANTIBODY, FOURTH GENERATION W/RFL Routine 02/19/2021 11:14 AM EDT from Last 3 Months or Most Recently Relevant to Health Maintenance Results * MR Shoulder w/o Contrast Left (01/20/2025 11:30 AM EDT) Anatomical Region Laterality Modality Upper Extremities, Shoulder Left Magn etic Resonance 01/20/2025 11:3 0 AM EDT Narrative 01/22/2025 8:34 AM EDT ? [facility] ?[address] ?[place] [address] ? Magnetic Resonance Report ? Signed ? Patient: Rhonda Story ?MR#: [id number] ?? 0 ? : 1965 ?Acct:[id number] ? Age/Sex: 59 / F ?ADM Date: 01/20/25 ? Loc: HO.MRI ? Attending Dr: Paul Gagnon MD ? Ordering Physician: Paul Gagnon MD ?? Date of Service: 01/20/25 ?? Procedure(s): MR shoulder LT wo con ?? Accession Number(s): [id number] ? cc: Christina,Chu DONOVAN; Paul Gagnon MD ? EXAMINATION: MRI LEFT SHOULDER WITHOUT CONTRAST ? HISTORY: M25.312 - Other instability, left shoulder ? COMPARISON: Correlation is made to plain films of the left shoulder ?? dated 12/01/2021. ? TECHNIQUE: ??Coronal T1, T2, and fat suppressed T2, axial fat suppressed ?? proton density, and sagittal T2 weighted MR images of the left shoulder ?? were obtained. ? FINDINGS: ? Bone Marrow: ??Bone marrow signal intensity is normal. ? Joint effusion: ??There is no glenohumeral joint effusion. ? Glenohumeral joint: ??The glenohumeral joint is maintained. ? AC joint: ??There is mild osteoarthritis of the AC joint with cartilage ?? loss and osteophyte formation. ? Supraspinatus muscle/tendon: ??There is diffuse increased signal ?? intensity within the supraspinatus tendon consistent with degeneration. ?? There is a moderate-sized full-thickness tear approximately 10 mm from ?? the insertion on the greater tuberosity of the humerus. There is a ?? small amount of fluid in the subdeltoid bursa. There is no tendon ?? retraction. ??Normal muscle bulk. ? Infraspinatus muscle/tendon: ??The infraspinatus tendon is intact. ? Normal muscle bulk. ? Teres minor muscle/tendon: ??The teres minor tendon is intact. ??Normal ?? muscle bulk. ? Subscapularis muscle/tendon: ??The subscapularis tendon is intact. ? Normal muscle bulk. ? Biceps tendon: ??The biceps tendon is intact and normally located. ? Glenoid labrum: ??The glenoid labrum is grossly unremarkable in ?? appearance, although evaluation is limited by lack of a joint effusion. ? Other findings: ??None ? MR/MR shoulder LT wo con ?? IMPRESSION: ?? 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 ? Electronically signed by: ??Dejuan Putnam MD ??01/22/2025 08:31 AM EDT ? Dictated By: ?Dejuan Putnam MD ? Signed By: ?<Electronically signed by Dejuan Putnam MD in OV> ?01/22/25 0831 ? DD/ 1130 ? TD/TT: 01/20/25 1219 ? Bridge Club Manager: ? Procedure Note Michael Oleary - 01/22/[address] [address] Magnetic Resonance Report Signed Patient: Rhonda Story EMR#: [id number] 0 : 1965Acct:[id number] Age/Sex: 59 / FADM Date: 01/20/25 Loc: HO.MRI Attending Dr: Paul Gagnon MD Ordering Physician: Paul Gagnon MD Date of Service: 01/20/25 Procedure(s): MR shoulder LT wo con Accession Number(s): [id number] cc: Name,Chu DONOVAN; Paul Gagnon MD EXAMINATION: MRI LEFT SHOULDER WITHOUT CONTRAST HISTORY: M25.312 - Other instability, left shoulder COMPARISON: Correlation is made to plain films of the left shoulder dated 12/01/2021. TECHNIQUE: Coronal T1, T2, and fat suppressed T2, axial fat suppressed proton density, and sagittal T2 weighted MR images of the left shoulder were obtained. FINDINGS: Bone Marrow: Bone marrow signal intensity is normal. Joint effusion: There is no glenohumeral joint effusion. Glenohumeral joint: The glenohumeral joint is maintained. AC joint: There is mild osteoarthritis of the AC joint with cartilage loss and osteophyte formation. Supraspinatus muscle/tendon: There is diffuse increased signal intensity within the supraspinatus tendon consistent with degeneration. There is a moderate-sized full-thickness tear approximately 10 mm from the insertion on the greater tuberosity of the humerus. There is a small amount of fluid in the subdeltoid bursa. There is no tendon retraction. Normal muscle bulk. Infraspinatus muscle/tendon: The infraspinatus tendon is intact. Normal muscle bulk. Teres minor muscle/tendon: The teres minor tendon is intact. Normal muscle bulk. Subscapularis muscle/tendon: The subscapularis tendon is intact. Normal muscle bulk. Biceps tendon: The biceps tendon is intact and normally located. Glenoid labrum: The glenoid labrum is grossly unremarkable in appearance, although evaluation is limited by lack of a joint effusion. Other findings: None MR/MR shoulder LT wo con IMPRESSION: Mild osteoarthritis of the AC joint. Tendinosis of the supraspinatus tendon with a moderate-sized full-thickness tear of the distal tendon. Electronically signed by: Dejuan Putnam MD 01/22/2025 08:31 AM EDT RP Dictated By: Dejuan Putnam MD Signed By: <Electronically signed by Dejuan Putnam MD in OV> 01/22/25 0831 DD/ 1130 TD/TT: 01/20/25 1219 Bridge Club Manager: [facility] External Provider IMG MRI PROCEDURES Final Result * (ABNORMAL) POCT Glucose (12/04/2024 11:44 AM EST) Glucose Blood, POC 225(A) 60 - 200 mg/dL Comment:Random QC Media Lot # [id number] Lot# Expiration Date Blood Capillary blood specimen / Unknown 12/04/2024 11:44 AM EST us Chu Vasquez MD POINT OF CARE TEST ENTER/EDIT OR DERABLES Final Result * Albumin, Random Urine W/Creatinine (10/22/2024 8:57 AM EST) Creatinine, Urine 126.37 mg/dL [facility] Microalbumin Urine 24.0 mg/L [facility] Microalbum Creatinine Ratio Ur 18.9 <30 ug/mg cr [facility] Comment:Albumin/Creatinine R atio Reference Ranges: Normal: < 30 ug/mg creatinine Microalbuminuria: 30 - 300 ug/mg creatinineClinical Albuminuria: > 300 ug/mg creatinine 10/22/2024 8:57 AM EST 10/22/2024 11:04 AM EST us Chu Vasquez MD LAB URINE ORDERABLES Final Resul t [facility] [address] [place] [phone] * Lipid Panel, Standard (10/22/2024 8:57 AM EST) Triglycerides 100 <150 mg/dL [facility] Comment:Desirable Triglyceri de: less than 150 mg/dLBorderline High Triglyceride 150-199 mg/dLHigh Triglyceride: 200-499 mg/dLVery High Triglyceride: greater than or equal to 5OO mg/dL Cholesterol 122 <200 mg/dL [facility] Comment:Desirable Cholestero l: less than 200 mg/dLBorderline High Cholesterol: 200-239 mg/dLHigh Cholesterol: greater than 239 mg/dL LDL Cholesterol Calculated 56 <100 mg/dL [facility] Comment:Desirable LDL: less than 100 mg/dLNear Optimal/Above Optimal LDL: 110- 129 mg/dLBorderline High LDL: 130-159 mg/dLHigh LDL: 160-189 mg/dLVery High LDL: greater than or equal to 190 mg/dL HDL Cholesterol 46 >40 mg/dL [facility] Comment:Desirable HDL: great er than 40 mg/dL Note: This HDL assay may give artificially low results in patients with liver disease. 10/22/2024 8:57 AM EST 10/22/2024 11:12 AM EST us Chu Vasquez MD LAB BLOOD ORDERABLES Final Resul t [facility] [address] [place] [address] [phone] * (ABNORMAL) POCT HGB A1C (10/18/2024 [...] Procedure: Req: Mammogram (Screening); Bilateral Procedure Note Provider, Tyrese, - 01/16/2023 Refer to the Notes tab for result details Legacy Procedure: Req: Mammogram (Screening); Bilateral us Sage Name IMG BI PROCEDURES Final Result * HEPATITIS [...] a test for HCV RNA (test code 96252) is suggested. ?? For additional information please refer to http://education.[employer]/faq/WLB49w9 (This link is being provided for informational/ educational purposes only.) ?? 02/19/2021 11:1 4 AM EDT us Sage Name HISTORICAL/NON ORDERABLE LABS Fi nal Result Performing Organization Address City/State/[facility] Co de Phone Number [facility] [address] * HIV 1/2 ANTIGEN/ANTIBODY,FOURTH GENERATION W/RFL [...] ? For additional information please refer to http://education.[employer]/faq/ISE050 (This link is being provided for informational/ educational purposes only.) ? The performance of this assay has not been clinically validated in patients less than 2 years old. ?? 02/19/2021 11:1 4 AM EDT us Chu Vasquez MD LAB BLOOD ORDERABLES Final Resul t [facility] [address] from Last 3 Months or Most Recently Relevant to Health Maintenance Insurance [facility] C3 DENTAL-[facility] MEDICAID STAND ADULT Care Teams Hydroelectric Plant Structural Engineer Relationship Specialty Start Date End Date Name, MD Chu [address] [place] [address] PCP - General Family Medicine 09/24/19 Sarah Gaytan PharmD [address] [place] [address] Pharmacist Internal Medicine 10/18/24
--- OUTSIDE RECORDS SUMMARY | 2025-01-29 11:08 | XMS_ITS | Encounter Summary ---
Author Organization [employer] Address [address] [place] [address] Care Team Providers Care Foreign Collection Clerk Name Role Phone Name, Chu DONOVAN Primary Care Provider [phone] Sarah Gaytan PharmD Unavailable [phone] Reason for Visit * Reason Onset Date Comments Results 04/30/2024 Encounter Details Date Type Department Care Team ([facility] st Contact Info) Description 04/30/2024 Telephone [facility] [address] [place], [place] [phone] Name, MD Chu [address] [place], [place] [phone] Results Social History Tobacco Use Types Packs/Day [...] RN - 05/01/2024 11:21 AM EDT Nurse manager loan already spoke with pt. Pt. Already received MRI result by PCP trough phone. * Telephone Encounter - Francisco Harrison - 04/30/2024 11:49 AM EDT Tc from pt requesting results from multiple recent studies. Pt stated she's had multiple studies regarding MRI's and Sleep Study's but has not received a call back to review any of them. Please contact pt at [phone]. Eritrean Speaking. documented in this encounter Plan of Treatment Upcoming Encounters Date Type Department Care Team (Late st Contact Info) Description 03/01/2025 10:30 AM EDT Medication Management [facility] [address] [place] [address] Sarah Gaytan, PharmD [address] [place], [place] [phone] 03/05/2025 11:00 AM EDT Office Visit [facility] [address] [place] [address] Name, MD Chu [address] [place] [address] documented as of this encounter Visit Diagnoses Not on filedocumented in this encounter Additional Health Concerns Assessment Noted Time PHQ-9 Depression Total Score: 9 02/09/20 23 2:47 PM EDT documented as of this encounter Care Teams Foreign Collection Clerk Relationship Specialty Start Date End Date Name, MD Chu [address] [place] [address] PCP - General Family Medicine 09/24/19 Sarah Gaytan PharmD [address] [place] [address] Pharmacist Internal Medicine 10/18/24 documented as of this encounter
--- OUTSIDE RECORDS SUMMARY | 2025-01-29 11:08 | XMS_ITS | Encounter Summary ---
Author Organization [employer] Address [address] [place] [address] Care Team Providers Care Dimethylaniline Sulfator Operator Name Role Phone Name, Chu DONOVAN Primary Care Provider [phone] Sarah Gaytan PharmD Unavailable [phone] Reason for Visit * Reason Onset Date Comments ER Follow-up 01/03/2024 Encounter Details Date Type Department Care Team ([facility] st Contact Info) Description 01/03/2024 Telephone [facility] MEDICINE [address] [place], [place] [phone] Name, MD Chu [address] [place] [address] ER Follow-up Social History Tobacco Use Types [...] case of any new or worsening symptoms. [facility] hours are reviewed. ED summery scanned into pt.'s chart. * Telephone Encounter - Bushra Jones - 01/03/2024 8:54 AM EDT Patient calling to report ED visit on : Date: 12/28/2023 Hospital: [facility] Seen for: Headaches Patient advised will forward to team nurse for follow up. Pt is requesting a referral for neurology as a recommendation from ER. documented in this encounter Plan of Treatment Upcoming Encounters Date Type Department Care Team ([facility] st Contact Info) Description 03/01/2025 10:30 AM EDT Medication Management [facility] MEDICINE [address] [place] [address] Puia, Haroldo Smith [address] [place] [address] 03/05/2025 11:00 AM EDT Office Visit [facility] MED[facility]INE [address] [place] [address] Name, [place] [address] documented as of this encounter Visit Diagnoses Not on filedocumented in this encounter Additional Health Concerns Assessment Noted Time PHQ-9 Depression Total Score: 9 02/09/20 23 2:47 PM EDT documented as of this encounter Care Teams Dimethylaniline Sulfator Operator Relationship Specialty Start Date End Date Name, MD Chu [address] [place] [address] PCP - General Family Medicine 09/24/19 Sarah Gaytan PharmD [address] [place] [address] Pharmacist Internal Medicine 10/18/24 documented as of this encounter
== END 2025-01-29 10:15 | disposition home or self-care (01) ==
LOC: HO.HOS 09:44
PROVIDERS: PCP Internal Medicine Geriatric Medicine; Visit Provider Orthopaedic Surgery
DX: M25.312 Other instability, left shoulder (principal)
CPT/HCPCS: 99213

== ENCOUNTER → 2025-01-29 09:44 | Outpatient (BNVA) | payer MEDICAID, SELFPAY | PROVIDERS: PCP Internal Medicine Geriatric Medicine; Visit Provider Orthopaedic Surgery | DX: M25.312 Other instability, left shoulder (principal) | CPT/HCPCS: 99212 ==

== ENCOUNTER 2025-04-11 10:27 | Outpatient (AMB) | payer MEDICAID, SELFPAY ==
--- NOTE | 2025-04-11 10:37 | MHC.OFFVIS ---
Vital Signs 04/11/25 10:41 Height 4 ft 8 in Weight 250 lb BMI 56.0 Intake Visit Reasons: Inj-Right shoulder inj-last 01/09/25 Intake Note: Rhonda is a 59 year old female who presents today for follow up of her right shoulder pain. At her last visit, 01/09/25, she was given a right shoulder injection. She states that she got very good relief from the injection. Her pain has returned. Most of the pain is along the lateral aspect of her shoulder. She denies any weakness. She has tried Tylenol and anti-inflammatory medicines which gave her mild relief. Dynamite Packing Machine Feeder Required: Yes Dynamite Packing Machine Feeder Language: Welt Stitch Cleaner Services: Dynamite Packing Machine Feeder Present Dynamite Packing Machine Feeder Name: JavadFOZIA aguilar/ELLIS Allergies No Known Allergies (No Known Allergies*) Allergy (Verified 04/11/25 10:41) Medication List - Last Reconciled 04/11/25 by Paul Gagnon MD alprazolam 0.5 mg PO TID PRN aripiprazole 5 mg PO QAM aspirin 81 mg PO QPM atorvastatin 20 mg PO QPM bwoxppqdgp-ifjeajubhivjc-jrid 50-300-40 mg (Fioricet) 1 cap PO Q4-6H PRN cholecalciferol (vitamin D3) 50 mcg PO QAM empagliflozin (Jardiance) 10 mg PO QPM fluticasone furoate 100 mcg/actuation (Arnuity Ellipta) 1 inh inhalation DAILY insulin degludec (Tresiba FlexTouch U-200 insulin) 74 units subcut DAILY insulin glargine (Lantus Solostar U-100 Insulin) 70 units subcut BEDTIME insulin lispro subcut lisinopril 20 mg PO QAM mupirocin 2% 1 appl topical BID 7 days semaglutide (Ozempic) 0.5 mg subcut QWEEK sertraline 200 mg PO QAM zolpidem 10 mg PO BEDTIME [facility] Medical History (Updated 01/10/25 @ 07:59 by Paul Gagnon MD) Anxiety Diabetes Social History Alcohol intake: never Substance Use Type: Marijuana Physical Exam Vital Signs: BMI result Body Mass Index 56.0 Const Other: Well-nourished well-developed very friendly female awake alert and oriented x3 in no acute distress Extrem Other: Bilateral upper extremity examination shows good capillary refill, no skin lesions noted, normal sensation light touch Right shoulder examination shows slightly decreased range of motion when compared to her left shoulder, positive impingement signs, 4+ out of 5 strength with supraspinatus testing, no instability Office Procedures AMB Joint Injection/Aspiration Joint Injection/Aspiration Primary Site: right shoulder Prep: site was prepped using aseptic technique Injected: 40 mg of, DepoMedrol and 1% plain lidocaine Procedure: The patient tolerated the procedure well Coding - Large joint Procedure code (CPT) selection complete Assessment & Plan Assessment & Plan (1) Impingement of right shoulder: Code(s): M25.811 - Other specified joint disorders, right shoulder Category: Medical Plan Ms. Story presents with right shoulder pain due to impingement syndrome. The risks and benefits of a right shoulder cortisone injection were discussed at length with the patient. The patient wished to proceed. She tolerated the injection well. She will continue with her home stretching program to prevent stiffness. She will contact me prior to her follow-up appointment in 3 months should any questions or concerns arise. Feel free to call me at any time should questions regarding her orthopedic management arise. I spent 22 minutes in reviewing the patient's records and imaging studies, seeing the patient and documenting in the medical record. Orders: Orders AMB Joint Injection/Aspiration Today M25.811 - Other specified joint disorders, right shoulder Coding Level of Care Code Est Pt Level 3 (96012) Complex EM visit Add On G2211 Diagnoses Impingement of right shoulder M25.811 CPT Codes Coding - Large joint: 20242 - Large joint ([id number])
[2025-04-11 10:41] VITALS: BMI 56.0
--- OUTSIDE RECORDS SUMMARY | 2025-04-11 11:53 | XMS_ITS | Encounter Summary ---
Author Organization [employer] Address [address] [facility] [address] [place] [address] Care Team Providers Care Hot End Operator Name Role Phone Name, Chu DONOVAN Primary Care Provider [phone] Sarah Gaytan PharmD Unavailable [phone] Encounter Details Date Type Department Care Team (Late st Contact Info) Description 12/30/2022 Orders Only [facility] [address] [place], [place] [phone] Charmaine Bloom LPN Social History Tobacco Use [...] as of this encounter Plan of Treatment Not on file documented as of this encounter Visit Diagnoses Not on filedocumented in this encounter Care Teams Hot End Operator Relationship Specialty Start Date End Date Name, MD Chu [address] [place] [address] PCP - General Family Medicine 09/24/19 Sarah Gaytan, PharmD [address] [place] [address] Pharmacist Internal Medicine 10/18/24 02/28/25 documented as of this encounter
== END 2025-04-11 11:00 | disposition home or self-care (01) ==
LOC: HO.HOS 10:28
PROVIDERS: PCP Internal Medicine Geriatric Medicine; Visit Provider Orthopaedic Surgery
DX: M25.811 Other specified joint disorders, right shoulder (principal)
CPT/HCPCS: 20610; 99213

== ENCOUNTER → 2025-04-11 10:27 | Outpatient (BNVA) | payer MEDICAID, SELFPAY | PROVIDERS: PCP Internal Medicine Geriatric Medicine; Visit Provider Orthopaedic Surgery | DX: M25.811 Other specified joint disorders, right shoulder (principal) | CPT/HCPCS: 20610; 99212; J1010; J2003 ==

== ENCOUNTER 2025-05-10 08:55 | Outpatient (REF) | payer MEDICAID, SELFPAY ==
--- OUTSIDE RECORDS SUMMARY | 2021-08-16 20:00 | XMS_ITS | Continuity of Care Document ---
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 [address] [facility] [address], [address], [place], [place], [id number] , . tel:[phone] Referring Provider: Sukh Segovia, [address] [facility], [place], [address]. tel:[phone] Family History Family Member Type Diagnosis Age At Onset No Information Payers Payer name Insurance type Covered green party ID Authordannya tijesus(s) [employer] BL [id number] Social History Type Description Quantity Date Captured Comments Sex Female Smoking Status No Information Chief Complaint And Reason For Visit No Information Reason For Referral Reason For Referral No Information History Of Present Illness Encounter Date Complaint History Of Prese nt Illness No Information Functional Status Date Functional Assessmen t No Information Instructions Date Instruction Additional Infor mation No Information Assessments Type Assessment Date No Information Patient Care Teams Name Effective Dates (start - stop) Status Members No Information
--- OUTSIDE RECORDS SUMMARY | 2025-05-10 09:00 | XMS_ITS | Clinical Summary ---
Author Organization [facility] Address [address] [place] [address] Care Team Providers Care County Auditor Name Role Phone Unavailable Primary Care Provider [...] kitIndications:Typ e 2 diabetes mellitus without complication (CMS & HHS-HCC) as needed for blood glucose monitoring. DX. Diabetes type 2 - Blood sugar check twice daily and prn 1 Each 0 5 Active lisinopril-hydroch lorothiazide (PRINZIDE,ZESTORET IC) 20-25 mg per tabletIndications: Essential hypertension Take 1 Tab by mouth once daily. 180 Tab 0 5 Active metFORMIN (GLUCOPHAGE) 500 mg tabletIndications: Type 2 diabetes mellitus without complication ([facility]) Take 2 Tabs by mouth 2 (two) [...] 10/09/2013 HTN (hypertension) 10/09/2013 DM (diabetes mellitus) ([facility]) 3 Depression 10/07/2013 Vitamin D deficiency 10/07/2013 Obesity [...] 111 03/25/2022 2:02 PM EDT Temperature 36.7 C (98.1 F) 06/27/2015 11:30 AM EDT Respiratory Rate 22 06/27/2015 11:30 AM EDT Oxygen Saturation - - Inhaled Oxygen Concentration - - Weight 93.7 kg (206 lb 8 oz) 06/27/2015 11:30 AM EDT Height 154.9 cm (5' 1 ) 06/27/2015 11:30 AM EDT Body Mass Index 39.02 06/27/2015 11:30 AM EDT Plan of Treatment Not on [place] [address] [place] [id number] [facility]
[2025-05-10 11:36] LABS: Hematocrit 44.3 % (37.0-47.0); Hemoglobin 14.5 g/dl (12.0-16.0); Imm Gran Abs Auto 0.03 X10*3/uL (0.00-0.03); Imm Gran Pct Auto 0.3 % (0.0-0.4); Lymphocytes Absolute Auto 4.4 X10*3/uL (1.2-4.9); MANUAL DIFF FLAG SCAN; Mean Corpuscular HGB Conc 32.7 g/dl (31.0-35.0); Mean Corpuscular Hemoglobin 32.1 pg (27.0-33.0); Mean Corpuscular Volume 98.0 fL (80.0-98.0); NRBC Abs Auto 0.000 X10*3/uL (0.0-0.012); NRBC Pct Auto 0.0 /100WBC (0.0-0.2); Platelet Count 309 X10*3/uL (160-400); Red Blood Count 4.52 X10*6/uL (4.20-5.50); SCAN SMEAR FLAG 1; White Blood Count 10.9 X10*3/uL (4.8-10.8)
[2025-05-10 12:02] LABS: Microalbum/Creatinine Ratio Ur 29.7 ug/mg cr (<30)
[2025-05-10 12:03] LABS: Alanine Aminotransferase 26 U/L (0-31); Albumin Level 4.3 g/dL (3.5-5.0); Alkaline Phosphatase 85 U/L (39-117); Anion Gap 12 (12-20); Aspartate Amino Transferase 21 U/L (5-31); Blood Urea Nitrogen 14 mg/dL (9-16); Calcium 9.2 mg/dL (8.4-10.2); Carbon Dioxide 27 mmol/L (22-29); Chloride 108 mmol/L (96-108); Estimated Glomerular Filt Rate > 60; Potassium 4.9 mmol/L (3.3-5.1); Sodium 142 mmol/L (135-145); Total Protein 7.5 g/dL (6.5-8.0)
== END 2025-05-10 08:56 | disposition home or self-care (01) ==
LOC: HO.HHCL 08:55
PROVIDERS: PCP Internal Medicine Geriatric Medicine; Visit Provider Internal Medicine Geriatric Medicine
DX: E11.65 Type 2 diabetes mellitus with hyperglycemia (principal); Z79.4 Long term (current) use of insulin
CPT/HCPCS: 36415; 80053; 82043; 82570; 85025

== ENCOUNTER 2025-09-03 14:24 | Outpatient (REF) | payer MEDICAID, SELFPAY ==
--- OUTSIDE RECORDS SUMMARY | 2025-09-03 13:45 | XMS_ITS | Encounter Summary ---
Author Organization [employer] Address [address] [facility] 7t [place] [address] Care Team Providers Care Stock House Worker Name Role Phone Chu Vasquez MD Primary Care Provider [phone] Reason for Referral * Imaging (Routine) - Authorized Specialty Diagnoses / Procedures Referred By Contac t Referred To Contact Radiology Diagnoses Epigastric abdominal pain Procedures US Abdomen Complete Chu Vasquez MD [address] [place] [address] Phone: tel: fax: [address] Phone: tel: fax: Referral ID Status Reason Start Date Expiration Date V isits Requested Visits Authorized [id number] Authorized 09/03/2025 09/03/2026 1 1 Reason for Visit * Reason Comments Abdominal Pain Encounter Details Date Type Department Care Team (Late st Contact Info) Description 09/03/2025 1:45 PM EST Office Visit [facility] [address] [place], [place] [phone] Chu Vasquez MD [address] [place] [address] Epigastric abdominal pain (Primary Dx); Type 2 diabetes mellitus with hyperglycemia, with long-term current use of insulin (HCC) Social History Tobacco Use Types Packs/Day Years Used Date Smoking Tobacco: Every Day Cigarettes 0.5 41.9 Started: 10/18/1983 Passive Smoke Exposure: Current Smokeless [...] AM EDT documented as of this encounter Last Filed Vital Signs Vital Sign Reading Time Taken Comments Blood Pressure 154/84 09/03/2025 2:05 PM EST Pulse 87 09/03/2025 2:05 PM EST Temperature 36.2 C (97.2 F) 09/03/2025 2:05 PM EST Respiratory Rate 12 09/03/2025 2:05 PM EST Oxygen Saturation 95% 09/03/2025 2:05 PM EST Inhaled Oxygen Concentration - - Weight 105 kg (231 lb 12.8 oz) 09/03/2025 2:05 P M EST Height 162.6 cm (5' 4 ) 09/03/2025 2:05 PM EST Body Mass Index 39.79 09/03/2025 2:05 PM EST documented in this encounter Progress Notes * Chu Vasquez, - 09/03/2025 1:45 PM EST Subjective Patient ID: Rhonda Story is a 59 y.o. adult who presents for Abdominal Pain. Patient comes complaining of 2 weeks of abdominal pain. She described epigastric pain with radiation to the back. She is on Ozempic. She believes her symptoms are worse the day after administering Ozempic. She does not have any nausea, no vomiting, no weight loss, no fevers or chills, no constipation or diarrhea. Her only previous abdominal surgery is a cholecystectomy. She denies any recent sick contacts. Review of Systems Constitutional: Negative for chills and fever. HENT: Negative for sore throat. Respiratory: Negative for cough, shortness of breath and wheezing. Cardiovascular: Negative for chest pain, palpitations and leg swelling. Gastrointestinal: Positive for abdominal pain. See HPI Objective Vitals: 09/03/25 1405 BP: (!) 154/84 BP Location: Left arm Patient Position: Sitting BP Cuff Size: Large adult Pulse: 87 Resp: 12 Temp: 97.2 ??F (36.2 ??C) TempSrc: Temporal SpO2: 95% Weight: 231 lb 12.8 oz (105 kg) Height: 5' 4 (1.626 m) Physical Exam Constitutional: Appearance: Normal appearance. Cardiovascular: Rate and Rhythm: Normal rate and regular rhythm. Heart sounds: No murmur heard. Pulmonary: Effort: Pulmonary effort is normal. No respiratory distress. Breath sounds: No wheezing, rhonchi or rales. Abdominal: Comments: Abdomen is obese, soft, bowel sounds are normal, she had discomfort on deep palpation of the epigastric area, I did not palpate any mass, she does not have rebound or guarding Musculoskeletal: Right lower leg: No edema. Left lower leg: No edema. Neurological: Mental Status: Rhonda is alert. Assessment/Plan Diagnoses and all orders for this visit: Epigastric abdominal pain Comments: Abdominal exam is benign. I suspect possible side effect of GLP-1 but I will also check for possible pancreatitis. I recommend evaluation with blood work listed below Urinalysis Ultrasound of the abdomen. Further recommendation based on the results. I suggested to her to hold GLP-1 next week. If all workup is negative I might have to lower her dose of Ozempic. Orders: - CBC auto differential; Future - Comprehensive Metabolic Panel; Future - Urinalysis, Complete, with Reflex to Culture; Future - Lipase; Future - US Abdomen Complete; Future Type 2 diabetes mellitus with hyperglycemia, with long-term current use of insulin (HCC) Comments: I did not recommend any medication changes for now. He is encouraged to avoid sweets and soda. Orders: - POCT Glucose - POCT Hgb A1c documented in this encounter Plan of Treatment Scheduled Orders Name Type Priority Associated Diagnoses Orde r Schedule CBC auto differential Lab Routine Epigastric abdominal pain Expected: 09/03/2025 (Approximate), Expires: 09/03/2026 Comprehensive Metabolic Panel Lab Routine Epigastric abdominal pain Expected: 09/03/2025 (Approximate), Expires: 09/03/2026 Urinalysis, Complete, with Reflex to Culture Lab Routine Epigastric abdominal pain Expected: 09/03/2025 (Approximate), Expires: 09/03/2026 Lipase Lab Routine Epigastric abdominal pain Expected: 09/03/2025, Expires: 09/03/2026 US Abdomen Complete Imaging Routine Epigastric abdominal pain Expected: 09/03/2025, Expires: 09/03/2026 documented as of this encounter Procedures Procedure Name Priority Date/Time Associated Diagnosis Comments POCT GLYCATED HEMOGLOBIN, TOTAL Routine 09/03/2025 2:06 PM EST Type 2 diabetes mellitus with hyperglycemia, with long-term current use of insulin (HCC) POCT GLUCOSE Routine 09/03/2025 2:06 PM EST Type 2 diabetes mellitus with hyperglycemia, with long-term current use of insulin (HCC) documented in this encounter Results * (ABNORMAL) POCT Hgb A1c (09/03/2025 2:06 PM EST) Hemoglobin A1C 9.2(A) 4.0 - 5.7 % QC Media Lot # [id number] Lot# Expiration Date 51,227 Blood 09/03/2025 2:06 PM EST Chu Vasquez MD POINT OF CARE TEST ENTER/EDIT OR DERABLES Final Result * POCT Glucose (09/03/2025 2:06 PM EST) Glucose Blood, POC 179 60 - 200 mg/dL QC Media Lot # [id number] Lot# Expiration Date 22,726 Blood Capillary blood specimen / Unknown 09/03/2025 2:06 PM EST Chu Vasquez MD POINT OF CARE TEST ENTER/EDIT OR DERABLES Final Result documented in this encounter Visit Diagnoses Diagnosis Epigastric abdominal pain- Primary Abdominal pain, epigastric Type 2 diabetes mellitus with hyperglycemia, with long-term current use of insulin (HCC) documented in this encounter Additional Health Concerns Assessment Noted Time PHQ-9 Depression Total Score: 20 025 11:41 AM EST documented as of this encounter Care Teams Stock House Worker Relationship Specialty Start Date End Date Name, MD Chu [address] [place] [address] PCP - General Family Medicine 09/24/19 documented as of this encounter
--- OUTSIDE RECORDS SUMMARY | 2025-09-03 16:07 | XMS_ITS | Encounter Summary ---
Author Organization [employer] Address [address] [facility] [address] 7[address] [place] [address] Care Team Providers Care Oven Roaster Name Role Phone Name, Chu DONOVAN Primary Care Provider [phone] Sarah Gaytan PharmD Unavailable [phone] Reason for Visit * Reason Onset Date Comments Results 04/30/2024 Encounter Details Date Type Department Care Team ([facility] Contact Info) Description 04/30/2024 Telephone [facility] [address] [place], [place] [phone] Name, MD Chu [address] [place], [place] [phone] Results Social History Tobacco Use Types Packs/Day [...] AM EDT documented as of this encounter Functional Status * Over the past 2 weeks, how often have you been bothered by any of the following problems? Question Answer Date of Assessment Author Patient Health Questionnaire-2 Score 6 /0 06/2024 1:51 PM Eva Batista * If you checked off any problems on this questionnaire so far, Question Answer Date of Assessment Author How difficult have these problems made it for you to do your work, take care of things at home, or get along with other people? Very difficult 05/01/2024 1:51 PM Jackie Batista * Over the past 2 weeks, how often have you been bothered by any of the following problems? Question Answer Date of Assessment Author Little interest or pleasure in doing things Nearly every day 05/01/2024 1:51 PM Eva Batista Feeling down, depressed, or hopeless Nearly every day 05/01/2024 1:51 PM Jackie Batista Trouble falling or staying asleep, or sleeping too much Not at all 05/01/2024 1:51 PM Jackie Batista Feeling tired or having little energy Nearly every day 05/01/2024 1:51 PM Jackie Batista Poor appetite or overeating Not at all 05/01/2024 1:51 PM EDT Jackie Harrison Feeling bad about yourself - or that you are a failure or have let yourself or your family down Nearly every day 05/01/2024 1:51 PM EDT Jackie Harrison Trouble concentrating on things, such as reading the newspaper or watching television Several days 05/01/2024 1:51 PM EDT Jackie Harrison Moving or speaking so slowly that other people could have noticed? Or the opposite - being so fidgety or restless that you have been moving around a lot more than usual. Not at all 05/01/2024 1:51 PM EDT Jackie Harrison Thoughts that you would be better off or hurting yourself in some way More than half the days 05/01/2024 1:51 PM Eva Batista Patient Health Questionnaire-9 Score 15 05/01/2024 1:51 PM EDT Ne Harrison documented as of this encounter Miscellaneous Notes * Telephone Encounter - Tate Camargo RN - 05/01/2024 11:21 AM EDT Nurse wind operations manager already spoke with pt. Pt. Already received MRI result by PCP trough phone. * Telephone Encounter - Francisco Harrison - 04/30/2024 11:49 AM EDT Tc from pt requesting results from multiple recent studies. Pt stated she's had multiple studies regarding MRI's and Sleep Study's but has not received a call back to review any of them. Please contact pt at [phone]. Khmer Speaking. documented in this encounter Plan of Treatment Not on file documented as of this encounter Visit Diagnoses Not on filedocumented in this encounter Additional Health Concerns Assessment Noted Time PHQ-9 Depression Total Score: 9 02/09/20 23 2:47 PM EDT documented as of this encounter Care Teams Oven Roaster Relationship Specialty Start Date End Date Name, MD Chu [address] [place] [address] PCP - General Family Medicine 09/24/19 Sarah Gaytan, WendyD [address] [place] [address] [place] [address] Pharmacist Internal Medicine 10/18/24 02/28/25 documented as of this encounter
--- OUTSIDE RECORDS SUMMARY | 2025-09-03 16:07 | XMS_ITS | Encounter Summary ---
Author Organization [employer] Address [address] [facility] 7t [place] [address] Care Team Providers Care Music Education Director Name Role Phone Chu Vasquez MD Primary Care Provider [phone] Sarah Gaytan PharmD Unavailable [phone] Reason for Visit * Reason Onset Date Comments VNA Orders 05/27/2023 Encounter Details Date Type Department Care Team ([facility] st Contact Info) Description 05/27/2023 Telephone [facility] [address] [place], [place] [phone] Name, MD Chu [address] [place], [place] [phone] VNA Orders Social History Tobacco Use Types [...] Advise forward over to provider on Tuesday. Proj Mgr advise will transfer over to HIM for another status of document. Please contact Shandra at [phone] * Telephone Encounter - Duaneeffie Al Jung - 05/27/2023 12:54 PM EDT Tc from Shandra with [employer], requesting status on some orders that need signing and are much over due. Shandra states she sent them over on 05/18/2023 and again on 05/25/2023. Shandra states that she spoke with HIM and HIM Advise forward over to provider on Tuesday. Proj Mgr advise will transfer over to HIM for another status of document. Please contact Shandra at [phone] documented in this encounter Plan of Treatment Not on file documented as of this encounter Visit Diagnoses Not on filedocumented in this encounter Additional Health Concerns Assessment Noted Time PHQ-9 Depression Total Score: 9 02/09/20 23 2:47 PM EDT documented as of this encounter Care Teams Music Education Director Relationship Specialty Start Date End Date Name, MD Chu [address] [place] [address] PCP - General Family Medicine 09/24/19 Sarah Gaytan PharmD [address] [place] [address] Pharmacist Internal Medicine 10/18/24 02/28/25 documented as of this encounter
--- OUTSIDE RECORDS SUMMARY | 2025-09-03 16:07 | XMS_ITS | Clinical Summary ---
Author Organization [facility] Address [address] [place] [address] Care Team Providers Care Call Centre Supervisor Name Role Phone Unavailable Primary Care Provider [...] kitIndications:Typ e 2 diabetes mellitus without complication as needed for blood glucose monitoring. DX. Diabetes type 2 - Blood sugar check twice daily and prn 1 Each 0 5 Active lisinopril-hydroch lorothiazide (PRINZIDE,ZESTORET IC) 20-25 mg per tabletIndications: Essential hypertension Take 1 Tab by mouth once daily. 180 Tab 0 5 Active metFORMIN (GLUCOPHAGE) 500 mg tabletIndications: Type 2 diabetes mellitus without complication Take 2 Tabs by mouth 2 (two) [...] 10/09/2013 HTN (hypertension) 10/09/2013 DM (diabetes mellitus) 10/07/2013 Depression 10/07/2013 Vitamin D deficiency 10/07/2013 [...] Plan of Treatment [place] [facility]
--- OUTSIDE RECORDS SUMMARY | 2025-09-03 16:07 | XMS_ITS | Encounter Summary ---
Author Organization [employer] Address [address] [facility] 7t [place] [address] Care Team Providers Care Bmw Sales Consultant Name Role Phone Name, Chu DONOVAN Primary Care Provider [phone] Sarah Gaytan PharmD Unavailable [phone] Encounter Details Date Type Department Care Team (Late st Contact Info) Description 12/30/2022 Orders Only [facility] [address] [place], [place] [phone] Charmaine Bloom LPN Social History Tobacco Use [...] on filedocumented in this encounter Care Teams Bmw Sales Consultant Relationship Specialty Start Date End Date Name, MD Chu [address] [place] [address] PCP - General Family Medicine 09/24/19 Sarah Gaytan, PharmD [address] [place] [address] Pharmacist Internal Medicine 10/18/24 02/28/25 documented as of this encounter
--- OUTSIDE RECORDS SUMMARY | 2025-09-03 16:07 | XMS_ITS | Encounter Summary ---
Author Organization [employer] Address [address] [facility] [address] 7t [place] [address] Care Team Providers Care Blueprint Assembler Name Role Phone Name, Chu DONOVAN Primary Care Provider [phone] Reason for Visit * Reason Comments Med Refill Encounter Details Date Type Department Care Team (Late st Contact Info) Description 08/31/[address] [facility] [address] [place], [place] [phone] Name, MD Chu [address] [place] [address] Social History Tobacco Use Types Packs/Day Years [...] documented as of this encounter Care Teams Blueprint Assembler Relationship Specialty Start Date End Date Name, MD Chu [address] [place] [address] PCP - General Family Medicine 09/24/19 documented as of this encounter
--- OUTSIDE RECORDS SUMMARY | 2025-09-03 16:07 | XMS_ITS | Encounter Summary ---
Author Organization [employer] Address [address] [facility] [address] 7[address] [place] [address] Care Team Providers Care Railway Signal Electrician Name Role Phone Name, Cuh DONOVAN Primary Care Provider [phone] Encounter Details Date Type Department Care Team (Latest Contact Info) Description 09/03/2025 Travel Social History Tobacco Use Types Packs/Day [...] documented as of this encounter Care Teams Railway Signal Electrician Relationship Specialty Start Date End Date Name, MD Chu [address] [place] [address] PCP - General Family Medicine 09/24/19 documented as of this encounter
--- OUTSIDE RECORDS SUMMARY | 2025-09-03 16:07 | XMS_ITS | Encounter Summary ---
Author Organization [employer] Address [address] [facility] [address] 7[address] [place] [address] Care Team Providers Care Drug Abuse Worker Name Role Phone Name, Chu DONOVAN Primary Care Provider [phone] Reason for Visit * Reason Onset Date Comments chart prep 09/02/2025 Encounter Details Date Type Department Care Team (Late st Contact Info) Description 09/02/2025 Telephone [facility] [address] [facility] [place], [place] [phone] Rogers Luna MA chart prep Social History Tobacco Use Types Packs/Day Years [...] encounter Miscellaneous Notes * Telephone Encounter - Rogers Luna MA - 09/02/2025 1:32 PM EST Chart Prep Labs: done Images: done Referrals: complete-Patient kept appt notes in chart. Tue01/09/25 8:45 AM [facility] Paul Gagnon MD Vaccines due: Flu Screenings: colonoscopy, mammogram, pap smear, and foot exam Overdue care gaps: A1c, Glucose, SBIRT, and Oral health screening documented in this encounter Plan of Treatment Not on file documented as of this encounter Visit Diagnoses Not on filedocumented in this encounter Additional Health Concerns Assessment Noted Time PHQ-9 Depression Total Score: 20 025 11:41 AM EST documented as of this encounter Care Teams Drug Abuse Worker Relationship Specialty Start Date End Date Name, MD Chu [address] [place] [address] PCP - General Family Medicine 09/24/19 documented as of this encounter
--- OUTSIDE RECORDS SUMMARY | 2025-09-03 16:07 | XMS_ITS | Encounter Summary ---
Author Organization [employer] Address [address] [facility] [address] [place] [address] Care Team Providers Care Road Roller Engineer Name Role Phone Name, Chu DONOVAN Primary Care Provider [phone] Reason for Visit * Reason Comments Med Refill Encounter Details Date Type Department Care Team (Late st Contact Info) Description 05/03/2025 Refill [facility] [address] [place], [place] [phone] Name, MD Chu [address] [place] [address] Type 2 diabetes mellitus with hyperglycemia, with long-term current use of insulin ([facility]) Social History Tobacco Use Types Packs/Day Years [...] documented as of this encounter Care Teams Road Roller Engineer Relationship Specialty Start Date End Date Name, MD Chu [address] [place] [address] PCP - General Family Medicine 09/24/19 documented as of this encounter
--- OUTSIDE RECORDS SUMMARY | 2025-09-03 16:07 | XMS_ITS | Encounter Summary ---
Author Organization [employer] Address [address] [facility] 7t [place] [address] Care Team Providers Care Passenger Service Agent Name Role Phone Name, Chu DONOVAN Primary Care Provider [phone] Sarah Gaytan PharmD Unavailable [phone] Encounter Details Date Type Department Care Team (Late st Contact Info) Description 11/01/2022 Orders Only [facility] MED [facility] PEDS [address] [place], [place] [phone] Charmaine Bloom LPN Social History Tobacco Use [...] on filedocumented in this encounter Care Teams Passenger Service Agent Relationship Specialty Start Date End Date Name, MD Chu [address] [place] [address] PCP - General Family Medicine 09/24/19 Sarah Gaytan, PharmD [address] [place] [address] Pharmacist Internal Medicine 10/18/24 02/28/25 documented as of this encounter
--- OUTSIDE RECORDS SUMMARY | 2025-09-03 16:07 | XMS_ITS | Clinical Summary ---
Author Organization [employer] Address [address] [place] [address] Care Team Providers Care Manager Labor Relations Name Role Phone Name, Chu DONOVAN Primary Care Provider [phone] Allergies Active Allergy Reactions Criticality Noted Date [...] at bedtime. 023 Active Continuous Blood Gluc Snailer (FreeStyle Christie 2 [place]) device Use as directed 1 each 023 Active ARIPiprazole (Abilify) 5 MG tablet Take 5 mg by mouth in the morning. 024 Active ibuprofen 200 MG tablet Take 400 mg by mouth Every 4-6 hours as needed for headaches. OTC Active glucose blood (FreeStyle Precision Alen Test) test strip truUse to test blood sugar up to 4 times daily, as directed 100 each 11 024 Active TRUEplus Lancets 33G misc Use to test blood sugar up to 4 time(s) daily 100 each 024 Active Ventolin HFA 108 (90 Base) MCG/ACT inhaler INHALE 2 PUFFS BY MOUTH EVERY 6 HOURS NEEDED FOR WHEEZING 18 g 11 025 Active aspirin 81 MG EC tabletIndication s:Type 2 diabetes mellitus with hyperglycemia, with long-term current use of insulin (HCC) Take 1 tablet (81 mg) by mouth with evening meal. 90 tablet 3 025 Active insulin pen needle (Pentips) 32G x 4 mm miscIndications: Type 2 diabetes mellitus with hyperglycemia, with long-term current use of insulin ([facility]) Use 4 times daily for insulin administration 200 each 11 025 Active atorvastatin (Lipitor) 20 MG tablet TAKE 1 TABLET BY MOUTH EVERY EVENING 90 tablet 3 025 Active cholecalciferol VITAMIN D (Vitamin D-3) 50 MCG (1999 [place]) tabletIndication s:Low back pain potentially associated with radiculopathy TAKE 1 TABLET BY MOUTH EVERY MORNING 90 tablet 025 Active semaglutide (Ozempic, 1 MG/DOSE,) 2 MG/1.5ML solution pen-injectorIndi cations:Type 2 Diabetes Mellitus Inject 1 mg under the skin 1 (one) time per week. 3 mL 025 Active insulin degludec (Tresiba FlexTouch) 200 UNIT/ML injectionIndicat ions:Type 2 diabetes mellitus with hyperglycemia, with long-term current use of insulin ([facility]) INJECT 60 UNITS SUBCUTANEOUSLY ONCE DAILY DIRECTED 9 mL 1 025 Active lisinopril 20 MG tablet TAKE 1 TABLET BY MOUTH EVERY MORNING 90 tablet 1 025 Active Continuous Glucose Sensor (FreeStyle Christie 2 Sensor) [facility] USE DIRECTED TO TEST BLOOD SUGAR. CHANGE EVERY 14 DAYS 2 each 025 Active Arnuity Ellipta 100 MCG/ACT inhaler INHALE 1 PUFF BY MOUTH EVERY DAY AT THE SAME TIME RINSE MOUTH AFTER USING 30 each 025 Active insulin lispro (HumaLOG) 100 UNIT/ML injectionIndicat ions:Type 2 diabetes mellitus treated with insulin ([facility]) INJECT 18 UNITS SUBCUTANEOUSLY BEFORE BREAKFAST AND BEFORE LUNCH AND INJECT 20 UNITS SUBCUTANEOUSLY BEFORE SUPPER 15 mL 3 025 Active Jardiance 10 MG TAKE 1 TABLET BY MOUTH EVERY EVENING 30 tablet 1 025 Active empagliflozin (Jardiance) 10 MG Take 1 tablet (10 mg) by mouth at bedtime. 30 tablet 1 025 Active Arnuity Ellipta 100 MCG/ACT inhaler INHALE 1 PUFF BY MOUTH EVERY DAY AT THE SAME TIME RINSE MOUTH AFTER USING 30 each 3 025 2024 Discontinued insulin lispro (HumaLOG) 100 UNIT/ML injectionIndicat ions:Type 2 diabetes mellitus treated with insulin ([facility]) INJECT 18 UNITS SUBCUTANEOUSLY BEFORE BREAKFAST AND BEFORE LUNCH AND INJECT 20 UNITS BEFORE SUPPER 15 mL 3 025 2024 Discontinued empagliflozin (Jardiance) 10 MG Take 1 tablet (10 mg) by mouth at bedtime. 30 tablet 1 025 2024 Discontinued Active Problems Problem Noted Date Diagnosed Date JULIANNA (obstructive sleep apnea) 05/01/2024 Overview (05/01/2024): CPAP with Auto CPAP 6-20 cm was recommended I will ask PA specilist to start process of getting machine Class 2 obesity 04/30/2024 Urinary incontinence 04/30/2024 Chiari malformation type I ([facility]) 02/21/2024 Anxiety 06/10/2023 Coitus painful for female 06/10/2023 Severe recurrent major depre ssion with psychotic features ([facility]) 02/27/2019 Type 2 diabetes mellitus 07/18/2018 Dyslipidemia 07/18/2018 Neurogenic bladder 03/02/2016 Tobacco dependence syndrome 01/06/2016 Simple obesity 12/17/2015 Type 2 diabetes mellitus with hyperglycemia 11/25 Hypercholesterolemia 12/17/2015 Incontinence of urine 12/25/2013 HTN (hypertension) 10/09/2013 Central obesity 10/09/2013 Vitamin D deficiency 10/07/2013 Depression 10/07/2013 Encounters Date Type Department Care Team Description 09/03/2025 1:45 PM EST Office Visit [facility] [address] [place] [phone] NameChu MD Epigastric abdominal pain (Primary Dx); Type 2 diabetes mellitus with hyperglycemia, with long-term current use of insulin ([facility]) 09/03/2025 Travel 09/02/[address] [facility] [address] [place], [place] [phone] Rogers Luna MA chart prep 09/02/[address] [facility] [address] [place], [place] [phone] Chu Vasquez MD 08/31/[address] [facility] [address] [place] [address] Chu Vasquez MD 08/25/[address] [facility] [address] [place] [address] Charmaine Miller DO Type 2 diabetes mellitus treated with insulin ([facility]) 08/04/[address] [facility] [address] [place] [address] Chu Vasquez MD 08/02/[address] [facility] [address] [place] [address] Chu Vasquez MD 07/12/[address] [facility] [address] [place] [phone] Chu Vasquez MD 07/11/[address] [facility] [address] [place], [place] [phone] Chu Vasquez MD 07/07/[address] [facility] [address] [place] [address] Chu Vasquez MD Type 2 diabetes mellitus with hyperglycemia, with long-term current use of insulin ([facility]) 07/02/[address] [facility] [address] [place] [phone] Rogers Luna MD august recalls 06/04/[address] [facility] [address] [place] [phone] Chu Vasquez MD [employer] (I called the patient, regarding her request for an increase in [employer] hours. She stated that she receives services from [employer]. She recently had an evaluation for an increase in hours, and is waiting for a response from them. ) from Last 3 Months Immunizations Immunization Administration Dates Next Due HepB-CpG 11/15/2024,03/23/2023 Influenza [...] Mass Index 39.79 09/03/2025 2:05 PM EST Plan of Treatment Health Maintenance Due Date Last Done Comments CT Colonography 1967 Colonoscopy 1967 Colorectal Cancer Screening 1967 FIT DNA/Cologuard 1967 FIT 1967 FOBT 1967 Sigmoidoscopy 1967 Diabetes: Foot Exam 1977 Alcohol/Substance Use Screening 1979 Pap Smear 1988 Cervical Cancer Screening 1997 HPV/Cotest 1997 Lung Cancer Screening 2017 Mammogram 09/08/2024 09/08/2022, 11/13/2018 Dental Oral Exam 04/05/2025 10/04/2024 Dental Prophylaxis 04/05/2025 10/04/2024 Depression Monitoring 06/03/2025 12/04/2024, 025 Influenza Vaccine (#1) 2025 , 08/12/2022, 07/18/2018, Additional history exists Dental X-Ray: Bitewings 10/05/2025 10/04/2024 Lipid Panel 10/22/2025 10/22/2024, 02/21, 08/16/2022, Additional history exists Diabetes: Hemoglobin A1C 12/04/2025 025, 04/19/2025, 10/18/2024, Additional history exists SDOH Screening 12/04/2025 12/04/2024 Disability Screening 04/19/2026 04/19/2025 Diabetes: Urine Protein Screening 05/10/2026 05/10/2025, 10/22/2024, 03/02/2023, Additional history exists Tobacco Screening 09/03/2026 09/03/2025 Eye Exam 01/29/2027 01/29/2025, 04/0 05/2025, 01/29/2025, [...] Completed 10/18/2024, , 01/15/2021, Additional history exists Hepatitis B Vaccines Completed [...] patient's age to complete this topic Meningococcal B Vaccine Aged Out No l onger eligible based on patient's age to complete [...] hyperglycemia, with long-term current use of insulin ([facility]) ALBUMIN, RANDOM URINE W/CREATININE Routine 05/10/2025 9:00 AM EDT Type 2 diabetes mellitus with hyperglycemia, with long-term current use of insulin (CMS/HCC) LIPID PANEL, STANDARD Routine 10/22/2024 8:57 AM EST PROPHYLAXIS - ADULT Routine 10/04/2024 1 1:00 [...] to Health Maintenance Results * (ABNORMAL) POCT Hgb A1c (09/03/2025 2:06 PM EST) Hemoglobin A1C 9.2(A) 4.0 - 5.7 % QC Media Lot # [id number] Lot# Expiration Date Blood 09/03/2025 2:06 PM EST us Chu Name POINT OF CARE TEST ENTER/EDIT OR DERABLES Final Result * POCT Glucose (09/03/2025 2:06 PM EST) Glucose Blood, POC 179 60 - 200 mg/dL QC Media Lot # [id number] Lot# Expiration Date Blood Capillary blood specimen / Unknown 09/03/2025 2:06 PM EST us Chu Vasquez MD POINT OF CARE TEST ENTER/EDIT OR DERABLES Final Result * (ABNORMAL) Albumin, Random Urine W/Creatinine (05/10/2025 9:00 AM EDT) Creatinine, Urine 195.21 mg/dL [facility] Microalbumin Urine 58.0 mg/L [facility] Microalbum Creatinine Ratio Ur 29.7(H) <30 ug/mg cr [facility] Comment:Albumin/Creatinine R atio Reference Ranges: Normal: < 30 ug/mg creatinine Microalbuminuria: 30 - 300 ug/mg creatinineClinical Albuminuria: > 300 ug/mg creatinine Urine (Urine, Random) 05/10/2025 9:00 AM EDT 05/10/2025 11:04 AM EDT us Chu Vasquez MD LAB URINE ORDERABLES Final Resul t [facility] [address] [place] [phone] * Lipid Panel, Standard (10/22/2024 8:57 AM EST) Triglycerides 100 <150 mg/dL [facility] Comment:Desirable Triglyceri de: less than 150 mg/dLBorderline High Triglyceride 150-199 mg/dLHigh Triglyceride: 200-499 mg/dLVery High Triglyceride: greater than or equal to 5OO mg/dL Cholesterol 122 <200 mg/dL [facility] Comment:Desirable Cholestero l: less than 200 mg/dLBorderline High Cholesterol: 200-239 mg/dLHigh Cholesterol: greater than 239 mg/dL LDL Cholesterol Calculated 56 <100 mg/dL [facility] Comment:Desirable LDL: less than 100 mg/dLNear Optimal/Above Optimal LDL: 110- 129 mg/dLBorderline High LDL: 130-159 mg/dLHigh LDL: 160-189 mg/dLVery High LDL: greater than or equal to 190 mg/dL HDL Cholesterol 46 >40 mg/dL [facility] Comment:Desirable HDL: great er than 40 mg/dL Note: This HDL assay may give artificially low results in patients with liver disease. 10/22/2024 8:57 AM EST 10/22/2024 11:12 AM EST us Chu Vasquez MD LAB BLOOD ORDERABLES Final Resul t [facility] [address] [place] [phone] * Req: Mammogram (Screening); Bilateral (09/08/2022 10:51 AM EST) Anatomical Region Laterality Modality Breast Bilateral Mammography 09/08/2022 10:5 1 AM EST Narrative 09/08/2022 10:52 AM EST Refer to the Notes tab for result details [facility] Procedure: Req: Mammogram (Screening); Bilateral Procedure Note Provider, MD Tyrese - 01/16/2023 Refer to the Notes tab for result details [facility] Procedure: Req: Mammogram (Screening); Bilateral us Chu Vasquez MD IMG BI PROCEDURES Final Result * HEPATITIS C AB W/REFL TO HCV RNA, QN, PCR (02/19/2021 11:14 AM EDT) HEPATITIS C ANTIBODY NON-REACT ADAMARIS NON-REACT [facility]IS [facility] INDEX 0.02 <1.00 [facility] Comment: HCV antibody was non-reactive. There is no laboratory evidence of HCV infection. In most cases, no further action is required. However, if recent HCV exposure is suspected, a test for HCV RNA (test code 72322) is suggested. For additional information please refer to http://education.[employer]/faq/VGW52q0 (This link is being provided for informational/ educational purposes only.) 02/19/2021 11:1 4 AM EDT us Chu Vasquez MD HISTORICAL/NON ORDERABLE LABS Fi nal Result Performing Organization Address [facility] Phone Number [facility] [address] * HIV 1/2 ANTIGEN/ANTIBODY,FOURTH GENERATION W/RFL (02/19/2021 11:14 AM EDT) HIV-1/2 ANTIGEN AND ANTIBODIES, 4TH GENERATION W/ REFLEX NON-REACT ADAMARIS NON-REACT ADAMARIS [facility] Comment: HIV-1 antigen and HIV-1/HIV-2 antibodies were not detected. There is no laboratory evidence of HIV infection. PLEASE NOTE: This information has been disclosed to you from records whose confidentiality may be protected by state law. If your state requires such protection, then the state law prohibits you from making any further disclosure of the information without the specific written consent of the person to whom it pertains, or as otherwise permitted by law. A general authorization for the release of medical or other information is NOT sufficient for this purpose. For additional information please refer to http://education.[employer]faq/HKJ256 (This link is being provided for informational/ educational purposes only.) The performance of this assay has not been clinically validated in patients less than 2 years old. 02/19/2021 11:1 4 AM EDT us Chu Vasquez MD LAB BLOOD ORDERABLES Final Resul t Performing Organization Address [facility] Phone Number [facility] [address] from Last 3 Months or Most Recently Relevant to Health Maintenance Insurance [facility] C3 DENTAL-[facility] MEDICAID STAND ADULT Care Teams Manager Labor Relations Relationship Specialty Start Date End Date Name, MD Chu [address] [place] [address] [place] [id number] PCP - General Family Medicine 09/24/19
--- OUTSIDE RECORDS SUMMARY | 2025-09-03 16:07 | XMS_ITS | Encounter Summary ---
Author Organization [employer] Address [address] [place] [address] Care Team Providers Care Oral Surgery Technician Name Role Phone Name, Chu DONOVAN Primary Care Provider [phone] Sarah Gaytan PharmD Unavailable [phone] Reason for Visit * Reason Onset Date Comments Medication Question 2023 Encounter Details Date Type Department Care Team ([facility] Contact Info) Description 2023 Telephone [facility] [address] [place], [place] [phone] Name, MD Chu [address] [place], [place] [phone] Medication Question Social History Tobacco Use Types [...] 4 times daily. Please contact pt at [phone]. documented in this encounter Plan of Treatment Not on file documented as of this encounter Visit Diagnoses Not on filedocumented in this encounter Additional Health Concerns Assessment Noted Time PHQ-9 Depression Total Score: 9 02/09/20 23 2:47 PM EDT documented as of this encounter Care Teams Oral Surgery Technician Relationship Specialty Start Date End Date Name, MD Chu [address] [place] [address] PCP - General Family Medicine 09/24/19 Sarah Gaytan PharmD [address] [place] [address] Pharmacist Internal Medicine 10/18/24 02/28/25 documented as of this encounter
--- OUTSIDE RECORDS SUMMARY | 2025-09-03 16:07 | XMS_ITS | Encounter Summary ---
Author Organization [employer] Address [address] [place] [address] Care Team Providers Care Medicine Tech Name Role Phone Name, Chu DONOVAN Primary Care Provider [phone] Encounter Details Date Type Department Care Team (Late st Contact Info) Description 09/02/2025 Refill [facility] [address] [place], [place] [phone] Name, MD Chu [address] [place] [address] Social History Tobacco Use Types Packs/Day Years [...] documented as of this encounter Care Teams Medicine Tech Relationship Specialty Start Date End Date Name, MD Chu [address] [place] [address] PCP - General Family Medicine 09/24/19 documented as of this encounter
--- OUTSIDE RECORDS SUMMARY | 2025-09-03 16:07 | XMS_ITS | Encounter Summary ---
Author Organization [employer] Address [address] [place] [address] Care Team Providers Care Cage Maker Name Role Phone Chu Vasquez MD Primary Care Provider Sarah Gaytan PharmD Unavailable [phone] Reason for Visit * Reason Onset Date Comments ER Follow-up 01/03/2024 Encounter Details Date Type Department Care Team ([facility] st Contact Info) Description 01/03/2024 Telephone [facility] [address] [place], [place] [phone] Name, MD Chu [address] [place] [address] ER Follow-up Social History Tobacco Use Types [...] case of any new or worsening symptoms. [facility] hours are reviewed. ED summery scanned into pt.'s chart. * Telephone Encounter - Bushra Jones - 01/03/2024 8:54 AM EDT Patient calling to report ED visit on : Date: 12/28/2023 [place] [facility] [place] Seen for: Headaches Patient advised will forward [...] documented as of this encounter Care Teams Cage Maker Relationship Specialty Start Date End Date Name, MD Chu [address] [place] [address] PCP - General Family Medicine 09/24/19 Sarah Gaytan, Haroldo [address] [place] [address] Pharmacist Internal Medicine 10/18/24 02/28/25 documented as of this encounter
[2025-09-03 16:10] LABS: MANUAL DIFF FLAG NO
[2025-09-03 16:25] LABS: Hematocrit 45.4 % (37.0-47.0); Hemoglobin 14.8 g/dl (12.0-16.0); Imm Gran Abs Auto 0.06 X10*3/uL (0.00-0.03); Imm Gran Pct Auto 0.5 % (0.0-0.4); Lymphocytes Absolute Auto 4.8 X10*3/uL (1.2-4.9); Mean Corpuscular HGB Conc 32.6 g/dl (31.0-35.0); Mean Corpuscular Hemoglobin 31.7 pg (27.0-33.0); Mean Corpuscular Volume 97.2 fL (80.0-98.0); NRBC Abs Auto 0.000 X10*3/uL (0.0-0.012); NRBC Pct Auto 0.0 /100WBC (0.0-0.2); Platelet Count 336 X10*3/uL (160-400); Red Blood Count 4.67 X10*6/uL (4.20-5.50); White Blood Count 12.8 X10*3/uL (4.8-10.8)
[2025-09-03 16:44] LABS: Chloride 106 mmol/L (96-108); Potassium 4.0 mmol/L (3.3-5.1); Sodium 141 mmol/L (135-145)
[2025-09-03 16:45] LABS: Alanine Aminotransferase 37 U/L (0-31); Albumin Level 4.5 g/dL (3.5-5.0); Alkaline Phosphatase 91 U/L (39-117); Anion Gap 11 (12-20); Aspartate Amino Transferase 30 U/L (5-31); Blood Urea Nitrogen 16 mg/dL (9-16); Calcium 10.1 mg/dL (8.4-10.2); Carbon Dioxide 28 mmol/L (22-29); Estimated Glomerular Filt Rate > 60; Lipase 40 U/L (8-78); Total Protein 7.9 g/dL (6.5-8.0)
[2025-09-03 16:48] LABS: Appearance Urine Clear; Glucose Urine UA 500 mg/dL (Negative); PH 6.5 (5.0-9.0); Specific Gravity - Urine 1.020 (1.005-1.025)
== END 2025-09-03 14:25 | disposition home or self-care (01) ==
LOC: HO.HHCL 14:24
PROVIDERS: PCP Internal Medicine Geriatric Medicine; Visit Provider Internal Medicine Geriatric Medicine
DX: R10.13 Epigastric pain (principal)
CPT/HCPCS: 36415; 80053; 81001; 83690; 85025